=== PATIENT | female | born 1960 | race Caucasian/White ===

== ENCOUNTER 2019-02-26 09:11 | Inpatient (IN) | payer OTHER ==
[2019-02-26] MEDS ORDERED: ASPIRIN 81 MG CHEWABLE TABLET ONE (10:04)
[2019-02-26] MEDS ORDERED: HEPARIN 5000 UNIT/ML 1 ML VIAL ONE (10:05)
[2019-02-26] MEDS ORDERED: PANTOPRAZOLE 40 MG INJ ONE (10:05)
[2019-02-26] MEDS ORDERED: METOPROLOL TAR 25 MG TAB ONE (10:05)
[2019-02-26] MEDS ORDERED: HEPARIN/D5W 25,000 UNIT/500 ML BAG IV ONE (10:05)
--- NOTE | 2019-02-26 10:16 | RAD REPORT ---
EXAM DESCRIPTION: RAD - Chest Single View - 02/26/2019 9:50 am CLINICAL HISTORY: Bilateral shoulder pain, left-sided chest pain, shortness of breath COMPARISON: None TECHNIQUE: AP portable chest image was obtained 0948 hours . FINDINGS: Lung volumes are low. Patchy airspace opacification is present in the mid right lung field most likely right upper lobe pneumonia. Bilateral lower lung field atelectasis changes are present. Failure and volume overload are not suspected. Heart and vasculature are normal. No measurable pleural effusion and no pneumothorax. No acute bony abnormality seen. No acute aortic findings suspected. IMPRESSION: Right upper lobe pneumonia.
[2019-02-26] MEDS ORDERED: MORPHINE 2 MG/ML SYR ONE (10:18)
[2019-02-26] MEDS ORDERED: ONDANSETRON 4 MG/2 ML VIAL ONE (10:18)
[2019-02-26 10:26] LABS: Absolute Lymphocytes (CBC) 0.5 K/uL (0.7-4.9); Basophils % 0.1 % (0-1.3); Hematocrit 35.1 % (36.0-45.0); Lymphocytes % 6.3 % (15.3-44.8); Protime INR 1.04
[2019-02-26] MEDS ORDERED: LEVALBUTEROL 1.25 MG/3 ML NEB ONE (10:39)
[2019-02-26] MEDS ORDERED: IPRATROPIUM BROM 0.5MG/2.5ML ONE (10:39)
[2019-02-26] MEDS ORDERED: NA CHLORIDE 0.9% 3,000 ML ONE (10:40)
[2019-02-26] MEDS ORDERED: Levofloxacin 750mg IV 750 MG/150 ML BAG IV ONE (10:40)
[2019-02-26 10:58] LABS: ALT/SGPT 18 U/L (12-78); AST/SGOT 14 U/L (15-37); Albumin 3.3 g/dL (3.4-5.0); Alkaline Phosphatase 87 U/L (45-117); BUN Blood Urea Nitrogen 33 mg/dL (7-18); Bicarbonate 23 mmol/L (21-32); Bilirubin Direct 0.2 mg/dL (0-0.2); Bilirubin Total 0.5 mg/dL (0.2-1.0); Glucose Level 171 mg/dL (74-106); Lipase 108 U/L (73-393); Magnesium 1.7 mg/dL (1.8-2.4); NT PRO-BNP 239 pg/mL (<125); Potassium 3.9 mmol/L (3.5-5.1); Protein, Total 6.1 g/dL (6.4-8.2); Sodium Level 144 mmol/L (136-145); Troponin (Emerg Dept Use Only) < 0.02 ng/mL (0.0-0.045)
[2019-02-26] MEDS ORDERED: CEFTRIAXONE/SWI 2gm 2 GM/20 ML SYR IVP ONE (11:00)
--- NOTE | 2019-02-26 11:02 | ER ---
Nurse's Notes [facility] Name: Susan Bermudez Age: 58 yrs Sex: Female : 1960 Arrival Date: 02/26/2019 Time: 09:12 Bed 7 Private MD: Diagnosis: Pneumonia due to other specified bacteria;Weakness;Hypotension;Sepsis, unspecified organism;Other chest pain;Unspecified kidney failure;Hypomagnesemia Presentation: 02/26 09:20 Presenting complaint: Patient states: woke up this morning around 0700 with sherri sv shoulder pain, left sided chest tightness that radiates to the left arm, SOB, dizziness. Denies n/v. Transition of care: patient was not received from another setting of care. Onset of symptoms was February 26, 2019 at 07:00. Risk Assessment: Do you want to hurt yourself or someone else? Patient reports no desire to harm self or others. Care prior to arrival: None. 09:20 Method Of Arrival: Wheelchair sv 09:20 Acuity: LIAM 2 sv 09:32 Initial Sepsis Screen: Does the patient meet any 2 criteria? HR > 90 bpm. No. Patient's sv initial sepsis screen is negative. Does the patient have a suspected source of infection? No. Patient's initial sepsis screen is negative. 11:39 Initial Sepsis Screen: Does the patient meet any 2 criteria? Systolic BP < 90 mmHg. sv Mean Arterial Pressure (MAP) < 65. Yes Does the patient have a suspected source of infection? Yes: Productive cough/pneumonia If YES to both, name of provider notified: Luis Martin MD Triage Assessment: 09:20 General: Appears in no apparent distress. uncomfortable, well developed, Behavior is sv calm, cooperative, appropriate for age. Pain: Complains of pain in anterior aspect of left upper chest, left breast, anterior aspect of right shoulder, anterior aspect of left shoulder, left bicep, left antecubital area, dorsal aspect of left forearm, left wrist and left hand Pain currently is 7 out of 10 on a pain scale. Neuro: Level of Consciousness is awake, alert, obeys commands, Oriented to person, place, time, situation, Gait is steady, Speech is normal. Cardiovascular: Patient's skin is warm and dry. Respiratory: Reports shortness of breath on exertion Airway is patent Respiratory effort is even, unlabored, Respiratory pattern is regular, symmetrical. GI: Patient currently denies nausea, vomiting. Derm: Skin is intact, Skin is pink, warm \T\ dry. Historical: - Allergies: 09: Erythromycin; sv - Home Meds: :22 Percocet Oral [Active]; Lyrica Oral [Active]; Prilosec Oral [Active]; sv - PMHx: 09:22 Back pain; sv - PSHx: :22 right kidney removed; sv - Immunization history:: Flu vaccine is up to date. - Social history:: Smoking status: Patient/guardian denies using tobacco. - Ebola Screening: : No symptoms or risks identified at this time. - Family history:: not pertinent. Screenin:30 Abuse screen: Denies threats or abuse. Denies injuries from another. Nutritional sv screening: No deficits noted. Tuberculosis screening: No symptoms or risk factors identified. Fall Risk None identified. Assessment: 09:40 Reassessment: Patient appears in no apparent distress at this time. No changes from sv previously documented assessment. Patient and/or family updated on plan of care and expected duration. Pain level reassessed. Patient is alert, oriented x 3, equal unlabored respirations, skin warm/dry/pink. 10:30 Reassessment: Patient appears in no apparent distress at this time. Patient and/or sv family updated on plan of care and expected duration. Pain level reassessed. Patient is alert, oriented x 3, equal unlabored respirations, skin warm/dry/pink. 11:04 Reassessment: Patient appears in no apparent distress at this time. Patient and/or sv family updated on plan of care and expected duration. Pain level reassessed. General: Appears in no apparent distress. comfortable, Behavior is cooperative, drowsy. Neuro:. Respiratory: Respiratory effort is even, unlabored, Respiratory pattern is regular, symmetrical. 11:40 Reassessment: Code Sepsis called. sv 12:19 Reassessment: Repeat lactate sent and called Cartina in lab to inform her it was sent. sv 12:39 Reassessment: Dr Kraft at bedside. sv 13:28 Reassessment: Patient appears in no apparent distress at this time. No changes from sv previously documented assessment. Patient and/or family updated on plan of care and expected duration. Pain level reassessed. Patient is alert, oriented x 3, equal unlabored respirations, skin warm/dry/pink. 14:41 Reassessment: Patient appears in no apparent distress at this time. No changes from sv previously documented assessment. Patient and/or family updated on plan of care and expected duration. Pain level reassessed. Patient is alert, oriented x 3, equal unlabored respirations, skin warm/dry/pink. 18:00 Reassessment: Attempted to call report. sv Vital Signs: 09:27 Pulse 112 MON; Resp 18; Temp 98.0; Pulse Ox 99% on R/A; Pain 7/10; sg 09:33 BP 112 / 94; Pulse 105; Resp 20; Temp 98.2; Pulse Ox 96% ; Weight 90.72 kg; Height 5 sv ft. 2 in. (157.48 cm); 09:48 Pulse 83; Resp 16; Pulse Ox 96% ; sv 10:30 BP 71 / 46; Pulse 87; Resp 17; Pulse Ox 96% ; sv 11:03 BP 79 / 68; Pulse 90; Resp 16; Temp 98.0(O); Pulse Ox 100% on Nebulizer Mask; mh5 11:35 BP 80 / 55; Pulse 92; Resp 20; Pulse Ox 100% on 2 lpm NC; sv 11:46 BP 89 / 55; Pulse 90; Resp 21; Pulse Ox 100% on 2 lpm NC; sv 12:43 BP 90 / 64; Pulse 91; Resp 14; Temp 98.8(TE); Pulse Ox 100% on R/A; mh5 13:49 BP 87 / 62; Pulse 81; Resp 16; Pulse Ox 97% on 2 lpm NC; sv 14:00 BP 85 / 53; Pulse 86; Resp 16; Pulse Ox 99% on R/A; sv 15:29 BP 98 / 61; Pulse 87; Resp 17; Temp 98.2; Pulse Ox 99% on R/A; sg 15:50 BP 91 / 58; Pulse 82; Resp 17; Temp 98.2; Pulse Ox 100% on R/A; sg 09:33 Body Mass Index 36.58 (90.72 kg, 157.48 cm) sv 10:30 Dr Martin informed of vitals, medication orders received, see APR. sv 11:35 MAP-62 sv ED Course: 09:12 Patient arrived in ED. ss 09:21 Triage completed. sv 09:21 Luis Martin MD is Attending Physician. kathryn 09:22 Arm band placed on. sv 09:22 Patient has correct armband on for positive identification. Placed in gown. Bed in low sv position. Call light in reach. Adult w/ patient. culinary arts instructor on. Pulse ox on. NIBP on. Door closed. Head of bed elevated. 09:30 Mely Coughlin, RN is Primary Nurse. sv 09:33 Patient maintains SpO2 saturation greater than 95% on room air. sv 09:40 Awaiting ED provider evaluation. sv 09:48 XRAY Chest (1 view) Sent. sv 09:48 X-ray(s) taken. sv 09:49 XRAY Chest (1 view) In Process Unspecified. EDMS 09:54 ED physician to see patient. sv 10:15 Radiology exam delayed due to lab results not completed at this time. (BUN/Creatinine). bq 10:20 Basic Metabolic Panel Sent. mh5 10:20 CBC with Diff Sent. mh5 10:20 LFT's Sent. mh5 10:20 Magnesium Sent. mh5 10:20 NT PRO-BNP Sent. mh5 10:20 PT-INR Sent. mh5 10:20 Troponin (emerg Dept Use Only) Sent. mh5 10:21 Initial lab(s) drawn, by me, sent to lab. EKG done, by ED staff, reviewed by Luis Martin MD. Inserted saline lock: 20 gauge in right antecubital area, using aseptic technique. Blood collected. 10:25 Inserted saline lock: 20 gauge in right wrist, using aseptic technique. Flushed right sv with 5 ml normal saline. 10:30 First set of blood cultures drawn by me. Inserted saline lock: 20 gauge in left wrist, sv using aseptic technique. Blood collected. Flushed left with 5 ml normal saline. 10:45 Second set of blood cultures drawn by me. sv 10:59 Mehdi Kraft MD is Hospitalizing Provider. kathryn 11:[address] via stretcher. sv 11:23 CT completed. Patient tolerated procedure well. Patient moved back from CT. nj 11:23 CT Chest Abdomen Pelvis W/O Contrast: no iv no oral In Process Unspecified. EDMS 11:42 Awaiting bed assignment, Awaiting radiology results. sv 11:51 Lactate Sent. mh5 11:51 Repeat lab(s) drawn. 5 17:26 No provider procedures requiring assistance completed. Patient admitted, IV remains in sv place. intact. Administered Medications: Discontinued: Heparin (NV Drip) 12 units/kg/hr - (HEParin 81524 units, D5W 500 ml) IV at calculated rate Per protocol; Max initial rate 1000 units/hr 10:14 Drug: Aspirin Chewable Tablet 324 mg Route: PO; sv 11:02 Follow up: Response: No adverse reaction sv 10:14 Drug: Lopressor 25 mg Route: PO; sv 11:01 Follow up: Response: No adverse reaction sv 10:14 Drug: ProTONIX 40 mg Route: IVP; Site: right antecubital; sv 11:01 Follow up: Response: No adverse reaction sv 10:20 Drug: Zofran 4 mg Route: IVP; Site: right antecubital; sv 11:00 Follow up: Response: No adverse reaction sv 10:22 Drug: morphine 2 mg {Note: rass0.} Route: IVP; Site: right antecubital; sv 11:00 Follow up: Response: No adverse reaction; Pain is decreased; RASS: Light sedation (-2) sv 10:23 Drug: Heparin (NV Drip) 12 units/kg/hr - (HEParin 90719 units, D5W 500 ml) sv {Co-Signature: sg (Ranjith Nowak RN).} Route: IV; Rate: calculated rate; Site: right antecubital; 10:23 Drug: Heparin (NV-Bolus No thrombolytic) - HEParin 60 units/kg {Co-Signature: sg sv (Ranjith Nowak RN).} Route: IVP; Site: right antecubital; 11:01 Follow up: Response: No adverse reaction sv 10:55 Drug: Rocephin 2 grams Route: IV; Rate: per protocol; Site: left wrist; sv 10:59 Follow up: Response: No adverse reaction; IV Status: Completed infusion; IV Intake: 20mlsv 10:59 Drug: Xopenex 1.25 mg Route: Inhalation; sv 10:59 Drug: AtroVENT Aerosol 0.5 mg Route: Inhalation; sv 11:00 Drug: NS 0.9% 1000 ml Route: IV; Rate: 1 bolus; Site: left wrist; sv 12:20 Follow up: Response: No adverse reaction; IV Status: Completed infusion; IV Intake: sv 1000ml 11:00 Drug: LevaQUIN 750 mg Volume: 150 ml; Route: IVPB; Infused Over: 90 mins; Site: left sv wrist; 12:39 Follow up: Response: No adverse reaction; IV Status: Completed infusion; IV Intake: sv 150ml 11:00 Drug: NS 0.9% 1000 ml Route: IV; Rate: 1 bolus; Site: left wrist; sv 12:38 Follow up: Response: No adverse reaction; IV Status: Completed infusion; IV Intake: sv 1000ml 11:12 Drug: Magnesium Sulfate 1 grams Route: IVPB; Infused Over: 1 hrs; Site: right wrist; sv 12:20 Follow up: Response: No adverse reaction; IV Status: Completed infusion; IV Intake: sv 100ml 12:19 Drug: NS 0.9% 1000 ml Route: IV; Rate: 1 bolus; Site: left forearm; sv 13:30 Follow up: Response: No adverse reaction; IV Status: Completed infusion; IV Intake: sv 1000ml 13:28 Drug: NS 0.9% 2000 ml Route: IV; Rate: 1 bolus; Site: left wrist; sg 15:00 Follow up: Response: No adverse reaction; IV Status: Completed infusion; IV Intake: sv 2000ml 14:41 Drug: NS 0.9% 1000 ml Route: IV; Rate: 125 ml/hr; Site: left wrist; sv 18:49 Follow up: Response: No adverse reaction; IV Status: Infusion continued upon admission sv Intake: 10:59 IV: 20ml; Total: 20ml. sv 12:20 IV: 1000ml; Total: 1020ml. sv 12:20 IV: 100ml; Total: 1120ml. sv 12:38 IV: 1000ml; Total: 2120ml. sv 12:39 IV: 150ml; Total: 2270ml. sv 13:30 IV: 1000ml; Total: 3270ml. sv 15:00 IV: 2000ml; Total: 5270ml. sv Outcome: 11:01 Decision to Hospitalize by Provider. kathryn 17:26 Admitted to ER Hold. Please see [facility] for further documentation. sv 17:26 Condition: stable 17:26 Instructed on the need for admit. 18:49 Patient left the ED. sv Signatures: Dispatcher [facility] Mely Moon RN RN sv Gay, Steven, RN RN sg Luis Martin MD MD cha Quilty, Betty Mechelle Casper RN RN [place] [id number] Ranjith Nowak RN Corrections: (The following items were deleted from the chart) 09:33 09:20 Acuity: LIAM 3 sv sv 09:34 09:33 Resp 20bpm; Pulse Ox 96%; Temp 98.2F; 90.72 kg; Height 5 ft. 2 in.; BMI: 36.5; sv sv 09:40 09:33 Pulse 105bpm; Resp 20bpm; Pulse Ox 96%; Temp 98.2F; 90.72 kg; Height 5 ft. 2 in.; sv BMI: 36.5; sv 11:11 11:03 BP 79 / 68; Pulse 90bpm; Resp 16bpm; Pulse Ox 100% Nebulizer Mask; [facility]
--- NOTE | 2019-02-26 11:03 | EDPHYS ---
Physician Documentation [facility] Name: Susan Bermudez Age: 58 yrs Sex: Female : 1960 Arrival Date: 02/26/2019 Time: 09:12 Bed 7 Private MD: ED Physician Luis Martin HPI: 02/26 09:58 This 58 yrs old Female presents to ER via Wheelchair with complaints of Chest kathryn Pain. 09:58 The patient or guardian reports chest pain that is located primarily in the substernal kathryn area, anterior chest wall. Onset: last night. The pain radiates to the left arm. Associated signs and symptoms: The patient has no apparent associated signs or symptoms. The chest pain is described as a heaviness, squeezing. Modifying factors: The symptoms are alleviated by nothing. the symptoms are aggravated by nothing. The patient has not experienced similar symptoms in the past. Historical: - Allergies: 09:22 Erythromycin; sv - Home Meds: 09:22 Percocet Oral [Active]; Lyrica Oral [Active]; Prilosec Oral [Active]; sv - PMHx: 09:22 Back pain; sv - PSHx: 09:22 right kidney removed; sv - Immunization history:: Flu vaccine is up to date. - Social history:: Smoking status: Patient/guardian denies using tobacco. - Ebola Screening: : No symptoms or risks identified at this time. - Family history:: not pertinent. ROS: 09:58 Constitutional: Negative for fever, chills, and weight loss, Eyes: Negative for injury, kathryn pain, redness, and discharge, ENT: Negative for injury, pain, and discharge, Neck: Negative for injury, pain, and swelling, Respiratory: Negative for shortness of breath, cough, wheezing, and pleuritic chest pain, Abdomen/GI: Negative for abdominal pain, nausea, vomiting, diarrhea, and constipation, Back: Negative for injury and pain, : Negative for injury, bleeding, discharge, and swelling, MS/Extremity: Negative for injury and deformity, Neuro: Negative for headache, weakness, numbness, tingling, and seizure, Psych: Negative for depression, anxiety, suicide ideation, homicidal ideation, and hallucinations, Allergy/Immunology: Negative for hives, rash, and allergies, Endocrine: Negative for neck swelling, polydipsia, polyuria, polyphagia, and marked weight changes, Hematologic/Lymphatic: Negative for swollen nodes, abnormal bleeding, and unusual bruising. 09:58 Cardiovascular: Positive for chest pain, of the left arm and chest. Exam: 09:58 Constitutional: This is a well developed, well nourished patient who is awake, alert, kathryn and in no acute distress. Head/Face: Normocephalic, atraumatic. Eyes: Pupils equal round and reactive to light, extra-ocular motions intact. Lids and lashes normal. Conjunctiva and sclera are non-icteric and not injected. Cornea within normal limits. Periorbital areas with no swelling, redness, or edema. ENT: Nares patent. No nasal discharge, no septal abnormalities noted. Tympanic membranes are normal and external auditory canals are clear. Oropharynx with no redness, swelling, or masses, exudates, or evidence of obstruction, uvula midline. Mucous membranes moist. Neck: Trachea midline, no thyromegaly or masses palpated, and no cervical lymphadenopathy. Supple, full range of motion without nuchal rigidity, or vertebral point tenderness. No Meningismus. Chest/axilla: Normal chest wall appearance and motion. Nontender with no deformity. No lesions are appreciated. Cardiovascular: Regular rate and rhythm with a normal S1 and S2. No gallops, murmurs, or rubs. Normal PMI, no JVD. No pulse deficits. Respiratory: Lungs have equal breath sounds bilaterally, clear to auscultation and percussion. No rales, rhonchi or wheezes noted. No increased work of breathing, no retractions or nasal flaring. Abdomen/GI: Soft, non-tender, with normal bowel sounds. No distension or tympany. No guarding or rebound. No evidence of tenderness throughout. Back: No spinal tenderness. No costovertebral tenderness. Full range of motion. MS/ Extremity: Pulses equal, no cyanosis. Neurovascular intact. Full, normal range of motion. Neuro: Awake and alert, GCS 15, oriented to person, place, time, and situation. Cranial nerves II-XII grossly intact. Motor strength 5/5 in all extremities. Sensory grossly intact. Cerebellar exam normal. Normal gait. Psych: Awake, alert, with orientation to person, place and time. Behavior, mood, and affect are within normal limits. 09:58 Skin: Appearance: Color: pale, Temperature: normal temperature, Moisture: diaphoretic, petechiae, not noted, ecchymosis, not noted, flushing, not noted, diaphoresis is noted, swelling, is not appreciated. 10:01 Musculoskeletal/extremity: ROM: intact in all extremities, full active range of motion, kathryn full passive range of motion, Circulation is intact in all extremities. Sensation intact. Compartment Syndrome exam of affected extremity: is normal. DVT Exam: No signs of deep vein thrombosis. no pain, no swelling, no tenderness, negative Homans' sign noted on exam, no appreciated bluish discoloration, no erythema, no increased warmth. Vital Signs: 09:27 Pulse 112 MON; Resp 18; Temp 98.0; Pulse Ox 99% on R/A; Pain 7/10; sg 09:33 BP 112 / 94; Pulse 105; Resp 20; Temp 98.2; Pulse Ox 96% ; Weight 90.72 kg; Height 5 sv ft. 2 in. (157.48 cm); 09:48 Pulse 83; Resp 16; Pulse Ox 96% ; sv 10:30 BP 71 / 46; Pulse 87; Resp 17; Pulse Ox 96% ; sv 11:03 BP 79 / 68; Pulse 90; Resp 16; Temp 98.0(O); Pulse Ox 100% on Nebulizer Mask; mh5 11:35 BP 80 / 55; Pulse 92; Resp 20; Pulse Ox 100% on 2 lpm NC; sv 11:46 BP 89 / 55; Pulse 90; Resp 21; Pulse Ox 100% on 2 lpm NC; sv 12:43 BP 90 / 64; Pulse 91; Resp 14; Temp 98.8(TE); Pulse Ox 100% on R/A; mh5 13:49 BP 87 / 62; Pulse 81; Resp 16; Pulse Ox 97% on 2 lpm NC; sv 14:00 BP 85 / 53; Pulse 86; Resp 16; Pulse Ox 99% on R/A; sv 15:29 BP 98 / 61; Pulse 87; Resp 17; Temp 98.2; Pulse Ox 99% on R/A; sg 15:50 BP 91 / 58; Pulse 82; Resp 17; Temp 98.2; Pulse Ox 100% on R/A; sg 09:33 Body Mass Index 36.58 (90.72 kg, 157.48 cm) sv 10:30 Dr Martin informed of vitals, medication orders received, see MAR. sv 11:35 MAP-62 sv MDM: 09:21 Patient medically screened. [facility] 10:01 Data reviewed: vital signs, nurses notes, lab test result(s), EKG, radiologic studies, [facility] CT scan, plain films. 02/26 09:32 Order name: Basic Metabolic Panel; Complete Time: 11:03 02/26 09:32 Order name: CBC with Diff; Complete Time: 10:32 02/26 09:32 Order name: LFT's; Complete Time: 11:03 02/26 09:32 Order name: Magnesium; Complete Time: 11:03 02/26 09:32 Order name: NT PRO-BNP; Complete Time: 11:03 02/26 09:32 Order name: PT-INR; Complete Time: 10:32 02/26 09:32 Order name: Troponin (emerg Dept Use Only); Complete Time: 11:03 02/26 09:34 Order name: Lipase; Complete Time: 11:03 [facility] 02/26 10:26 Order name: Blood Culture Adult (2) [facility] 02/26 11:39 Order name: Lactate sv 02/26 12:25 Order name: CBC with Automated Diff [facility] 02/26 12:25 Order name: CBC with Automated Diff [facility] 02/26 12:25 Order name: Comprehensive Metabolic Panel [facility] 02/26 12:25 Order name: Comprehensive Metabolic Panel [facility] 02/26 09:32 Order name: XRAY Chest (1 view); Complete Time: 10:24 02/26 11:02 Order name: CT Chest Abdomen Pelvis W/O Contrast: no iv no oral [facility] 02/26 12:25 Order name: Troponin I [facility] 02/26 12:25 Order name: Troponin I [facility] 02/26 12:25 Order name: Troponin I [facility] 02/26 12:25 Order name: Troponin I [facility] 02/26 12:25 Order name: Vancomycin Level Trough [facility] 02/26 12:25 Order name: Vancomycin Level Trough [facility] 02/26 13:28 Order name: Urine Dipstick--Ancillary (enter results) eb 02/26 13:48 Order name: Urine Creatinine sg 02/26 13:48 Order name: Urine Sodium Random sg 02/26 14:12 Order name: Urine Dipstick-Ancillary [facility] 02/26 14:15 Order name: UR CREAT [facility] 02/26 14:17 Order name: UR SODIUM [facility] 02/26 09:32 Order name: EKG; Complete Time: 09:33 02/26 09:32 Order name: Cardiac monitoring; Complete Time: 09:39 02/26 09:32 Order name: EKG - Nurse/Tech; Complete Time: 09:39 02/26 09:32 Order name: IV Saline Lock; Complete Time: 09:48 02/26 09:32 Order name: Labs collected and sent; Complete Time: 09:48 02/26 09:32 Order name: O2 Per Protocol; Complete Time: 09:40 02/26 09:32 Order name: O2 Sat Monitoring; Complete Time: 09:40 02/26 09:53 Order name: EKG; Complete Time: 09:54 02/26 09:53 Order name: EKG - Nurse/Tech; Complete Time: 10:14 02/26 09:58 Order name: EKG - Nurse/Tech; Complete Time: 10:19 [facility] 02/26 09:58 Order name: EKG; Complete Time: 09:58 [facility] 02/26 10:07 Order name: Labs - recollect needed: all labs to be recollected; Complete Time: 10:19 eb 02/26 12:25 Order name: CONS Pharmacy Consult [facility] 02/26 12:25 Order name: Clear Liquid [facility] 02/26 15:28 Order name: Diet Clear Liquid; Complete Time: 15:29 02/26 10:45 Order name: IV Saline Lock - Large Bore; Complete Time: 10:59 [facility] 02/26 12:09 Order name: Labs - recollect needed: recollect lac; Complete Time: 12:19 eb Administered Medications: Discontinued: Heparin (MN Drip) 12 units/kg/hr - (HEParin 14294 units, D5W 500 ml) IV at calculated rate Per protocol; Max initial rate 1000 units/hr 10:14 Drug: Aspirin Chewable Tablet 324 mg Route: PO; sv 11:02 Follow up: Response: No adverse reaction sv 10:14 Drug: Lopressor 25 mg Route: PO; sv 11:01 Follow up: Response: No adverse reaction sv 10:14 Drug: ProTONIX 40 mg Route: IVP; Site: right antecubital; sv 11:01 Follow up: Response: No adverse reaction sv 10:20 Drug: Zofran 4 mg Route: IVP; Site: right antecubital; sv 11:00 Follow up: Response: No adverse reaction sv 10:22 Drug: morphine 2 mg {Note: rass0.} Route: IVP; Site: right antecubital; sv 11:00 Follow up: Response: No adverse reaction; Pain is decreased; RASS: Light sedation (-2) sv 10:23 Drug: Heparin (MN Drip) 12 units/kg/hr - (HEParin 45449 units, D5W 500 ml) sv {Co-Signature: sg (Ranjith Nowak RN).} Route: IV; Rate: calculated rate; Site: right antecubital; 10:23 Drug: Heparin (MN-Bolus No thrombolytic) - HEParin 60 units/kg {Co-Signature: sg sv (Ranjith Nowak RN).} Route: IVP; Site: right antecubital; 11:01 Follow up: Response: No adverse reaction sv 10:55 Drug: Rocephin 2 grams Route: IV; Rate: per protocol; Site: left wrist; sv 10:59 Follow up: Response: No adverse reaction; IV Status: Completed infusion; IV Intake: 20mlsv 10:59 Drug: Xopenex 1.25 mg Route: Inhalation; sv 10:59 Drug: AtroVENT Aerosol 0.5 mg Route: Inhalation; sv 11:00 Drug: NS 0.9% 1000 ml Route: IV; Rate: 1 bolus; Site: left wrist; sv 12:20 Follow up: Response: No adverse reaction; IV Status: Completed infusion; IV Intake: sv 1000ml 11:00 Drug: LevaQUIN 750 mg Volume: 150 ml; Route: IVPB; Infused Over: 90 mins; Site: left sv wrist; 12:39 Follow up: Response: No adverse reaction; IV Status: Completed infusion; IV Intake: sv 150ml 11:00 Drug: NS 0.9% 1000 ml Route: IV; Rate: 1 bolus; Site: left wrist; sv 12:38 Follow up: Response: No adverse reaction; IV Status: Completed infusion; IV Intake: sv 1000ml 11:12 Drug: Magnesium Sulfate 1 grams Route: IVPB; Infused Over: 1 hrs; Site: right wrist; sv 12:20 Follow up: Response: No adverse reaction; IV Status: Completed infusion; IV Intake: sv 100ml 12:19 Drug: NS 0.9% 1000 ml Route: IV; Rate: 1 bolus; Site: left forearm; sv 13:30 Follow up: Response: No adverse reaction; IV Status: Completed infusion; IV Intake: sv 1000ml 13:28 Drug: NS 0.9% 2000 ml Route: IV; Rate: 1 bolus; Site: left wrist; sg 15:00 Follow up: Response: No adverse reaction; IV Status: Completed infusion; IV Intake: sv 2000ml 14:41 Drug: NS 0.9% 1000 ml Route: IV; Rate: 125 ml/hr; Site: left wrist; sv 18:49 Follow up: Response: No adverse reaction; IV Status: Infusion continued upon admission sv Disposition: 02/26/19 11:01 Hospitalization ordered by Mehid Kraft for Inpatient Admission. Preliminary diagnosis are Pneumonia due to other specified bacteria, Weakness, Hypotension, Sepsis, unspecified organism, Other chest pain, Unspecified kidney failure, Hypomagnesemia. - Bed requested for Telemetry/MedSurg (Inpatient). - Status is Inpatient Admission. sv - Condition is Fair. - Problem is new. - Symptoms have improved. UTI on Admission? No Signatures: Dispatcher [employer] Mely Moon RN RN sv Gay, Steven, RN RN sg Anderson, Corey, MD MD cha Smirch, Shelby, RN RN ss Botello, Elizabeth eb Steven Gay RN Corrections: (The following items were deleted from the chart) 11:04 11:01 Hospitalization Ordered by Mehdi Kraft MD for Inpatient Admission. Preliminary [facility] diagnosis is Pneumonia due to other specified bacteria; Weakness; Hypotension; Sepsis, unspecified organism; Other chest pain; Unspecified kidney failure. Bed requested for Telemetry/MedSurg (Inpatient). Status is Inpatient Admission. Condition is Fair. Problem is new. Symptoms have improved. UTI on Admission? No. kathryn 11:09 09:58 Angio Aorta For Dissection+CT.RAD.BRZ ordered. EDVT EDMS 11:10 10:58 Thorax Wo Con+CT.RAD.BRZ ordered. EDVT EDMS 11:15 11:04 02/26/2019 11:01 Hospitalization Ordered by Mehdi Kraft MD for Inpatient eb Admission. Preliminary diagnosis is Pneumonia due to other specified bacteria; Weakness; Hypotension; Sepsis, unspecified organism; Other chest pain; Unspecified kidney failure; Hypomagnesemia. Bed requested for Telemetry/MedSurg (Inpatient). Status is Inpatient Admission. Condition is Fair. Problem is new. Symptoms have improved. UTI on Admission? No. kathryn 14:13 11:15 02/26/2019 11:01 Hospitalization Ordered by Mehdi Kraft MD for Inpatient eb Admission. Preliminary diagnosis is Pneumonia due to other specified bacteria; Weakness; Hypotension; Sepsis, unspecified organism; Other chest pain; Unspecified kidney failure; Hypomagnesemia. Bed requested for Telemetry/MedSurg (Inpatient). Status is Inpatient Admission. Condition is Fair. Problem is new. Symptoms have improved. UTI on Admission? No. eb 17:52 14:13 02/26/2019 11:01 Hospitalization Ordered by Mehdi Kraft MD for Inpatient eb Admission. Preliminary diagnosis is Pneumonia due to other specified bacteria; Weakness; Hypotension; Sepsis, unspecified organism; Other chest pain; Unspecified kidney failure; Hypomagnesemia. Bed requested for [facility] ER HOLD. Status is Inpatient Admission. Condition is Fair. Problem is new. Symptoms have improved. UTI on Admission? No. eb 18:49 17:52 02/26/2019 11:01 Hospitalization Ordered by Mehdi Kraft MD for Inpatient sv Admission. Preliminary diagnosis is Pneumonia due to other specified bacteria; Weakness; Hypotension; Sepsis, unspecified organism; Other chest pain; Unspecified kidney failure; Hypomagnesemia. Bed requested for Telemetry/MedSurg (Inpatient). Status is Inpatient Admission. Condition is Fair. Problem is new. Symptoms have improved. UTI on Admission? No. eb
[2019-02-26] MEDS ORDERED: MAGNESIUM SULFATE 1 gm IVPB 1 GM/100 ML BAG IV ONE (11:11)
--- NOTE | 2019-02-26 11:38 | RAD REPORT ---
EXAM DESCRIPTION: CT - Chest Abd Pelvis Wo Con - 02/26/2019 11:23 am CLINICAL HISTORY: Cough;Abdominal distention, bilateral shoulder and upper chest pain, chest tightne ss radiating to the left arm, shortness of breath COMPARISON: None. TECHNIQUE: During dynamic enhancement using 100 milliliters nonionic IV contrast, axial 5 millimeter thick images of the chest, abdomen and pelvis were obtained. Biphasic technique was utilized through the abdomen. Oral contrast was administered. All CT scans are performed using dose optimization technique as appropriate and may include automated exposure control or mA/KV adjustment according to patient size. FINDINGS: Moderate-sized area airspace opacification is present in the posterior inferior right uppe r lobe near the minor fissure. Air bronchograms are present. No cavitation. Patchy interstitial and a lveolar opacities are present in the posterior gutter on the right. Right middle lobe and left lung f ield are spared. No pneumothorax or pleural effusion. No chest wall mass or abnormal axillary lympha denopathy seen. Mediastinal and hilar regions show no mass or lymphadenopathy. No significant cardi ac finding. The liver, spleen and pancreas show no significant findings. Gallbladder and biliary tree are normal . Left kidney is absent. No hydronephrosis of the right kidney. No mass identified. Isodense masses and pyelonephritis are not excluded on a noncontrast examination. No adrenal abnormalities. Urinary tonya dder is contracted. Uterus is normal size for age. There is substantial limitation of mid and pelvic floor assessment due to bilateral hip prosthesis spray artifact. No dilated bowel loops or focal ball bowel wall thickening. No free air, free fluid or inflammatory stranding. No mass or bulky lymphadenopathy. A 2 centimeter fat only umbilical hernia is present. An adjacent 3 cm supraumbilical hernia seen on the right with a 2 centimeter neck. An additional 5 cent imeter diameter fat only hernias present to the right of midline above the umbilicus. This has a 2 ce ntimeter neck. Postsurgical changes are present with fusion hardware in place L3-S1. Advanced degenerative changes a re present involving T11- L2. Advanced degenerative disc disease is present. There is a retrolisthesi s of L2 on L3. Acute component doubtful. T10 hemangiomas present. IMPRESSION: Moderate-sized right upper lobe pneumonia with smaller right lower lobe pneumonia. No ca vitation or complicating finding. No other significant chest finding. No acute abdominal or pelvic finding. Left kidney is absent. Umbilical and supraumbilical fat only ventral hernias seen. Postsurgical fusion changes at L3-S1 with extensive advanced for age degenerative disc and bone saul es T11-L2.
[2019-02-26] MEDS ORDERED: MORPHINE 4 MG/ML SYR IV PRN (12:17)
[2019-02-26] MEDS ORDERED: ONDANSETRON 4 MG/2 ML VIAL IV PRN (12:17)
[2019-02-26] MEDS ORDERED: ALBUTEROL 2.5 MG/3 ML NEB SOL NEB PRN ×2 (12:17→19:00)
[2019-02-26] MEDS ORDERED: GUAIFENESIN/DM 5 ML UCUP PO PRN (12:19)
[2019-02-26] MEDS ORDERED: ACETAMINOPHEN 325 MG TABLET PO PRN (12:19)
[2019-02-26] MEDS ORDERED: HYDRALAZINE HCL 20 MG/ML VIAL IV PRN (12:19)
[2019-02-26] MEDS ORDERED: guaiFENesin 100 MG/5 ML UCUP PO PRN (12:19)
[2019-02-26] MEDS ORDERED: Levofloxacin500mg IV 500 MG/100 ML BAG IV SCH ×2 (13:00→18:00)
[2019-02-26] MEDS: NA CHLORIDE 0.9% 1,000 ML IV SCH ×2 (13:00→23:00)
[2019-02-26] MEDS ORDERED: VANCOMYCIN 1 GM in NA CHLORIDE 0.9% 500 ML IVPB SCH (13:00)
[2019-02-26] MEDS ORDERED: NOREPINEPHRINE 4 MG in D5W 250 ML IV PRN (13:01)
[2019-02-26 14:11] LABS: Urine Blood TRACE (NEG); Urine Glucose NEGATIVE (NEG); Urine Protein NEGATIVE (NEG)
[2019-02-26] MEDS: IPRATROPIUM BROM 0.5MG/2.5ML NEB SCH ×2 (14:15→20:00)
[2019-02-26] MEDS: ALBUTEROL 2.5 MG/3 ML NEB SOL NEB SCH ×2 (16:00→20:00)
[2019-02-26] MEDS: PIPER/TAZO/NS 2.25gm 2.25 GM/50 ML BAG IVPB SCH (17:00)
[2019-02-26 17:06] VITALS: BMI 36.6
[2019-02-26] MEDS ORDERED: VANCOMYCIN 1.5 GM in NA CHLORIDE 0.9% 500 ML IVPB SCH (18:00)
--- NOTE | 2019-02-27 01:10 | HP ---
Date of Admission: 02/26/2019 Presenting Complaint: Weakness and chest pain. History Of Present Illness: Susan Bermudez is a 58-year-old female with past medical h istory of GERD, on Protonix b.i.d.; recently travel to this area from [facility]; history of right kidney nephrectomy for reflux; nephropathy 15 years ago, who presented to the hospital because of ri ght-sided radiating to substernal chest pain associated with weakness since yesterday. Patient is al so complaining of shortness of breath, initially on exertion, but later at rest. She described her c hest pain as pleuritic. Patient initially denies any cough, but sister at bedside states the patient has been having dry hacking cough since the last 3 days. Patient denies any sputum production. She denies any recent contact. She denies any recent travel since the last 1 month. She states she has history of recurrent pneumonia in the past. Last episode was about 2 years ago. She denies any reg ular antibiotics use. In the ER, she was noted with marked hypoxia with requiring 2 L nasal cannula as well as hypotension with systolic down to the 70s/40s. She has received 3 L of IV fluid bolus and her blood pressure is still ranging from 80-90 systolic. She states chest pain somewhat feels bridgett r. CT of the chest shows evidence of right middle and upper lobe pneumonia. Past Medical History: Significant for, 1.GERD. 2.Reflux nephropathy, status post right nephrectomy. 3.History of chronic back pain. Past Surgical History: Right nephrectomy. Family History: Significant for diabetes in both parents. Home Medications: Percocet p.r.n., Lyrica as needed, as well as Prilosec 40 b.i.d. Allergies: ERYTHROMYCIN. Social History: Patient denies any history of tobacco, alcohol, or illicit drug use. She normally l rich in [place] on vacation in the area since the last 2 months. Review of Systems: All systems reviewed x14 were negative except as mentioned above. Physical Examination: Current Vitals Sign: Blood pressure of 86/53, pulse is down to 83 from initial admission of 03/16, O 2 saturation is 96% on 2 L nasal cannula. Temperature is afebrile at 98.2. General: Obese, elderly looking female, on nasal cannula O2. Head: Atraumatic, normocephalic. Pupils equal, reactive to light. Slightly moist oral mucosa. Neck: No JVD. No carotid bruit. Respiratory: Good air entry except for mild increase egophony over the right base. No wheezing. No rhonchi. Cardiovascular: S1, S2. Non-tachycardic. GI: Abdomen full, soft, nontender. Bowel sounds positive. No epigastric tenderness. No CVA tender ness. No suprapubic fullness. Extremities: No pedal edema. No calf tenderness. Neurologic: Patient is alert, conversant. No neurological focal motor deficit. Laboratory Data: EKG on initial presentation showed sinus tachy at 113 beats per minute. No ST-segm ent changes. Repeat EKG, now heart rate down to 99 beats per minute. Relatively unchanged. Chest x-ray shows right upper lobe pneumonia. CT of abdomen and pelvis as well as chest without cont rast consistent with a moderate-sized right upper lobe pneumonia with small right lower lobe pneumoni a. No crepitation , only ventral hernia seen, postsurgical fusion changes at L3-S1 with de generative changes also noted. Rest of labs: WBC 8.8, neutrophils 84%, no bands. Platelet 208, hemoglobin 11.8. INR 1.04. Potass ium 3.9, creatinine 1.79, glucose 171. ProBNP of 239, lipase 108. AST and ALT normal. Impression: 1.Right multilobar pneumonia. 2.Septic shock with hypotension. 3.Hypotension. 4.Gastroesophageal reflux disease. 5.Acute renal failure. 6.History of single left kidney. Plan: 1.Pneumonia with sepsis. We will admit patient to the ICU since the persistent borderline low blood pressure. We will continue IV fluid boluses. We gave another 2 L bolus now. 2.History of persistent hypotension. We will start patient on Levophed drip. Follow blood culture. We brought in antibiotics to include vancomycin, Zosyn, as well as Levaquin for coverage at this ti me. We will do Tylenol p.r.n. as needed. We will obtain sputum culture if feasible for Gram stain. We will continue to wean O2 as needed. 3.Hypotension. We do IV fluids and Levophed as needed. 4.Acute renal failure, likely due to ATN from hypotension, possibility also due to ATN from sepsis. Unclear if patient has baseline CKD despite having single kidney as patient repeatedly state her pre vious lab work usually normal. We will obtain random urine sodium and creatinine to calculate fracti onal excretion of sodium. We will obtain renal sonogram to further evaluate single left kidney. We will follow daily BMP. 5.Gastroesophageal reflux disease. Continue PPI. 6.Advanced directive discussed with patient. Patient wished to be full code. 7.DVT prophylaxis with subcutaneous Lovenox. Low risk of PE at this time. Given evidence of multil obar pneumonia, we discontinue current heparin drip. Total time spent in review of record, discussion with patient, and evaluation greater than 60 minutes . EO/MODL Voice ID: [id number]
[2019-02-27] MEDS: ALBUTEROL 2.5 MG/3 ML NEB SOL NEB SCH ×4 (01:20→12:50)
[2019-02-27] MEDS: IPRATROPIUM BROM 0.5MG/2.5ML NEB SCH ×3 (01:20→14:00)
[2019-02-27] MEDS: PIPER/TAZO/NS 2.25gm 2.25 GM/50 ML BAG IVPB SCH ×3 (01:29→17:38)
[2019-02-27 06:08] LABS: Absolute Lymphocytes (CBC) 2.7 K/uL (0.7-4.9); Basophils % 0.2 % (0-1.3); Lymphocytes % 16.9 % (15.3-44.8); MPV 9.6 fL (7.6-11.3); RBC Red Blood Cell Count 3.04 M/uL (3.86-4.86)
[2019-02-27 07:09] LABS: ALT/SGPT 13 U/L (12-78); AST/SGOT 9 U/L (15-37); Albumin 2.5 g/dL (3.4-5.0); Alkaline Phosphatase 64 U/L (45-117); BUN Blood Urea Nitrogen 24 mg/dL (7-18); Bicarbonate 22 mmol/L (21-32); Bilirubin Total 0.3 mg/dL (0.2-1.0); Glucose Level 85 mg/dL (74-106); Potassium 4.1 mmol/L (3.5-5.1); Sodium Level 146 mmol/L (136-145); Troponin I < 0.02 ng/mL (0.0-0.045)
[2019-02-27] MEDS: NA CHLORIDE 0.9% 1,000 ML IV SCH ×2 (08:36→19:00)
[2019-02-27] MEDS ORDERED: VANCOMYCIN 1 GM in NA CHLORIDE 0.9% 500 ML IVPB SCH (09:00)
[2019-02-27] MEDS ORDERED: VANCOMYCIN 1.5 GM in NA CHLORIDE 0.9% 500 ML IVPB SCH (09:00)
[2019-02-27] MEDS ORDERED: ENOXAPARIN 30 MG/0.3 ML SQ SCH (09:00)
--- NOTE | 2019-02-27 11:25 | P.PN ---
Subjective Date of Service: 02/27/19 Chief Complaint: feel better Subjective: No new changes, Improving, Doing well Physical Examination - Vital Signs Temperature: 97.5 F Blood Pressure: 93/50 Pulse: 77 Respirations: 20 Pulse Ox (%): 100 - Physical Exam General: Alert, Oriented x3 HEENT: Atraumatic, Normocephalic Neck: Supple, JVD not distended Respiratory: Normal air movement, Diminished (right base ) Cardiovascular: Normal pulses, Regular rate/rhythm, Normal S1 S2 Gastrointestinal: Normal bowel sounds, Soft and benign Musculoskeletal: No clubbing, No swelling Integumentary: No rashes, No breakdown Neurological: Normal gait, Normal speech, Normal strength at 5/5 x4 extr - Studies Laboratory Last Values WBC 15.8 K/uL (4.3-10.9) H D 02/27/19 05:26 RBC 3.04 M/uL (3.86-4.86) L 02/27/19 05:26 Hgb 9.7 g/dL (12.0-15.0) L 02/27/19 05:26 Hct 29.0 % (36.0-45.0) L D 02/27/19 05:26 MCV 95.4 fL (80-100) 02/27/19 05:26 MCH 31.9 pg (27.0-35.0) 02/27/19 05:26 MCHC 33.5 g/dL (32.0-36.0) 02/27/19 05:26 RDW 13.8 % (12.1-15.2) 02/27/19 05:26 Plt Count 164 K/uL (152-406) D 02/27/19 05:26 MPV 9.6 fL (7.6-11.3) 02/27/19 05:26 Neutrophils % 75.6 % (41.7-73.7) H 02/27/19 05:26 Lymphocytes % 16.9 % (15.3-44.8) 02/27/19 05:26 Monocytes % 6.9 % (3.3-12.3) 02/27/19 05:26 Eosinophils % 0.4 % (0-4.4) 02/27/19 05:26 Basophils % 0.2 % (0-1.3) 02/27/19 05:26 Absolute Neutrophils 11.9 K/uL (1.8-8.0) H 02/27/19 05:26 Absolute Lymphocytes 2.7 K/uL (0.7-4.9) 02/27/19 05:26 Absolute Monocytes 1.1 K/uL (0.1-1.3) 02/27/19 05:26 Absolute Eosinophils 0.1 K/uL (0-0.5) 02/27/19 05:26 Absolute Basophils 0.0 K/uL (0-0.5) 02/27/19 05:26 PT 12.2 SECONDS (9.5-12.5) 02/26/19 10:15 INR 1.04 02/26/19 10:15 Sodium 146 mmol/L (136-145) H 02/27/19 05:26 Potassium 4.1 mmol/L (3.5-5.1) 02/27/19 05:26 Chloride 119 mmol/L (98-107) H 02/27/19 05:26 Carbon Dioxide 22 mmol/L (21-32) 02/27/19 05:26 BUN 24 mg/dL (7-18) H 02/27/19 05:26 Creatinine 1.18 mg/dL (0.55-1.3) 02/27/19 05:26 Estimated GFR 47 mL/min (=/>90) L 02/27/19 05:26 Glucose 85 mg/dL (74-106) 02/27/19 05:26 Lactic Acid 1.9 mmol/L (0.4-2.0) 02/26/19 12:15 Calcium 8.0 mg/dL (8.5-10.1) L 02/27/19 05:26 Magnesium 1.7 mg/dL (1.8-2.4) L 02/26/19 10:15 Total Bilirubin 0.3 mg/dL (0.2-1.0) 02/27/19 05:26 Direct Bilirubin 0.2 mg/dL (0-0.2) 02/26/19 10:15 AST 9 U/L (15-37) L 02/27/19 05:26 ALT 13 U/L (12-78) 02/27/19 05:26 Alkaline Phosphatase 64 U/L (45-117) 02/27/19 05:26 Rapid Troponin I < 0.02 ng/mL (0.0-0.045) 02/26/19 10:15 Troponin I < 0.02 ng/mL (0.0-0.045) 02/27/19 05:26 NT-Pro-B Natriuret Pep 239 pg/mL (<125) H 02/26/19 10:15 Serum Total Protein 5.0 g/dL (6.4-8.2) L 02/27/19 05:26 Albumin 2.5 g/dL (3.4-5.0) L 02/27/19 05:26 Globulin 2.5 g/dL (2.3-3.5) 02/27/19 05:26 Albumin/Globulin Ratio 1.0 (1.1-1.8) L 02/27/19 05:26 Lipase 108 U/L (73-393) 02/26/19 10:15 Urine pH 5.0 (5.0-7.0) 02/26/19 13:28 Ur Specific [place] 1.020 (1.005-1.030) 02/26/19 13:28 Urine Ketones Negative (NEG) 02/26/19 13:28 Urine Blood Trace (NEG) H 02/26/19 13:28 Urine Nitrite Negative (NEG) 02/26/19 13:28 Ur Leukocyte Esterase Negative (NEG) 02/26/19 13:28 Ur Random Sodium 115 mmol/L (27-287) 02/26/19 21:58 Urine Creatinine 138.0 mg/dL (20-320) 02/26/19 13:50 Urine Glucose Negative (NEG) 02/26/19 13:28 Urine Total Protein Negative (NEG) 02/26/19 13:28 Vancomycin Trough 14.0 ug/mL (5.0-20.0) 02/27/19 05:26 Assessment & Plan - Problems (Diagnosis) (1) ARF (acute renal failure) with tubular necrosis Current Visit: Yes Status: Acute (2) Hyperglycemia Current Visit: Yes Status: Acute (3) Right middle lobe pneumonia Current Visit: Yes Status: Acute (4) Sepsis associated hypotension Current Visit: Yes Status: Acute (5) Single kidney Current Visit: Yes Status: Acute Physician Review: Patient Assessed, Agree with Above Assessment and Plan Physician Review Additional Text: # Right middle and lower lobe pneumonia -improving -resolcing sepsis -c/w triople abx regime # ARF on baseline CKD -from single lkidney and pre-renal - improving -c/w IVF # HTN-continue to hold meds for now # Hyperglycemia - start po intake , follow glucose trend
--- NOTE | 2019-02-27 11:45 | EKG ---
Test Date: 2019-02-26 Test Time: 09:23:41 Polysomnography Technician: SWG MEASUREMENT RESULTS: Intervals: Rate: 113 LA: 118 QRSD: 90 QT: 324 QTc: 444 [place]: P: 52 LA: 118 QRS: -23 T: 38 INTERPRETIVE STATEMENTS: Sinus tachycardia Otherwise normal ECG No previous ECG available for comparison Electronically Signed On 02-27-19 11:42:15 PAYROLL ACCOUNTANT by Khai Walton
[2019-02-27] MEDS ORDERED: Magnesium Sulfate 2gm IVPB 2 G/50 ML BAG IV ONE (12:19)
[2019-02-27] MEDS: FAMOTIDINE 20 MG TAB PO SCH (12:37)
[2019-02-27] MEDS ORDERED: ALBUTEROL 2.5 MG/3 ML NEB SOL NEB PRN (14:02)
[2019-02-27] MEDS ORDERED: IPRATROPIUM BROM 0.5MG/2.5ML NEB PRN (14:02)
[2019-02-27] MEDS ORDERED: BENZONATATE 100 MG CAP PO PRN (21:42)
[2019-02-27] MEDS ORDERED: FLUTICASONE 50MCG NASAL SPRAY NAS PRN (21:42)
[2019-02-27] MEDS: NACHLORIDE 0.45% 1,000 ML IV SCH ×2 (22:00)
[2019-02-28] MEDS: PIPER/TAZO/NS 2.25gm 2.25 GM/50 ML BAG IVPB SCH ×3 (00:31→17:16)
--- NOTE | 2019-02-28 03:13 | P.PN ---
Subjective Date of Service: 02/28/19 Chief Complaint: feel better Subjective: Other (nursing reports that patient is now in A fib. No hx of this in past. Clinically stable.) Physical Examination - Vital Signs Temperature: 98.2 F Blood Pressure: 125/66 Pulse: 86 Respirations: 17 Pulse Ox (%): 92 Assessment & Plan Discharge Plan: Home Plan to discharge in: 48 Hours Physician Review Additional Text: New onset Atrial fib: Will start Metoprolol IV PRN. Will increase Lovenox to 1 mg/kg sc BID. Will order ECHO and consult Cardiology in the am. Will also DC Levaquin. Right middle and lower lobe pneumonia -improving -resolving sepsis -DC Levaquin and Vanco. Continue with Zosyn. ARF on baseline CKD -from single lkidney and pre-renal - improving -IV fluids adjusted. Will monitor renal function. HTN-DC Hydralazine since she will be on Metoprolol. Hyperglycemia - monitor closely. Time Spent Managing Pts Care (In Minutes): 25
[2019-02-28] MEDS: METOPROLOL TARTRATE 5 MG/5 ML INJ IV PRN ×2 (03:15→11:19)
[2019-02-28] MEDS: ENOXAPARIN 100 MG/ML SYR SQ SCH ×2 (05:18→16:18)
[2019-02-28 06:01] LABS: Absolute Lymphocytes (CBC) 2.9 K/uL (0.7-4.9); Basophils % 0.3 % (0-1.3); Hematocrit 29.9 % (36.0-45.0); Lymphocytes % 21.2 % (15.3-44.8); RBC Red Blood Cell Count 3.13 M/uL (3.86-4.86)
[2019-02-28 06:36] LABS: Ferritin 127.4 ng/mL (8-388); Thyroid Stimulating Hormone 3.04 uIU/mL (0.360-3.740)
[2019-02-28 06:38] LABS: ALT/SGPT 14 U/L (12-78); AST/SGOT 11 U/L (15-37); Albumin 2.5 g/dL (3.4-5.0); Alkaline Phosphatase 75 U/L (45-117); BUN Blood Urea Nitrogen 17 mg/dL (7-18); Bicarbonate 20 mmol/L (21-32); Bilirubin Total 0.3 mg/dL (0.2-1.0); Glucose Level 85 mg/dL (74-106); Protein, Total 5.3 g/dL (6.4-8.2); Sodium Level 149 mmol/L (136-145); Troponin I < 0.02 ng/mL (0.0-0.045)
[2019-02-28] MEDS ORDERED: D5W 1,000 ML IV SCH (08:00)
[2019-02-28] MEDS: FAMOTIDINE 20 MG TAB PO SCH (08:46)
[2019-02-28] MEDS: GUAIFENESIN 600 MG SA TAB PO SCH ×2 (08:46→21:10)
[2019-02-28] MEDS: PANTOPRAZOLE 40MG TABLET PO SCH ×2 (08:46→16:17)
--- NOTE | 2019-02-28 08:50 | RAD REPORT ---
EXAM DESCRIPTION: RAD - Chest Pa And Lat (2 Views) - 02/28/2019 8:24 am CLINICAL HISTORY: Follow up pneumonia, pneumonia, shortness of breath COMPARISON: February 26 CT and portable chest TECHNIQUE: PA and lateral views of the chest were obtained. FINDINGS: The lungs are underinflated. Right upper lobe pneumonia changes are still present. Little interval change has occurred. Small or right base pneumonia changes also appear stable. No developing failure or volume overload seen. Heart size is normal and central vasculature is within normal wetzel its. No pleural effusion or pneumothorax seen. Prominent degenerative changes are present. Neurosti mulator wires are in place. There is accentuated kyphosis at the thoracolumbar junction. No aortic ab normality. IMPRESSION: Right upper lobe and right lung base pneumonia findings not substantially different from comparison.
--- NOTE | 2019-02-28 09:48 | P.PN ---
Subjective Date of Service: 02/28/19 Primary Care Provider: unknown Chief Complaint: feel better Subjective: Other (Patient went into AFib last night. Patient stable this time. Shortness of breath has improved.) Physical Examination - Vital Signs Temperature: 97.4 F Blood Pressure: 128/83 Pulse: 137 Respirations: 20 Pulse Ox (%): 98 - Physical Exam General: Alert, In no apparent distress, Oriented x3, Cooperative HEENT: Atraumatic Neck: Supple Respiratory: Crackles/rales (To the right base) Cardiovascular: Irregular heart rate/rhythm (AFib with rate around 120) Gastrointestinal: Normal bowel sounds, No masses, No rebound, No guarding Musculoskeletal: No erythema, No tenderness, No warmth Integumentary: No significant lesion, No tenderness/swelling, No erythema, No warmth, No cyanosis Neurological: Normal speech, Normal strength at 5/5 x4 extr, Normal tone, Normal affect - Studies Medications List Reviewed: Yes Assessment & Plan Discharge Plan: Home Plan to discharge in: 24 Hours Physician Review Additional Text: Impression: New onset atrial fibrillation Right upper and lower lobe pneumonia Acute on chronic renal failure stage 3 with history of solitary kidney Hypertension Hypoglycemia Plan: New onset atrial fibrillation: Patient started on IV metoprolol last night. Cardiology consulted. Await further recommendation. Patient also started on Lovenox at 1 milligram/kilogram subcu twice daily. Patient will likely require chronic anti coagulation therapy at discharge. Medications including antibiotics had been adjusted. Patient no longer on Levaquin. Will order echocardiogram. Wean off oxygen. Will monitor closely. Anticipate discharge in the next 24-48 hr with clinical improvement. Right upper and lower lobe pneumonia: Continue wean off oxygen. Antibiotics adjusted. Patient now on Zosyn. Recheck chest x-ray. Will monitor closely. Acute on chronic renal failure stage 3 with history of solitary kidney: IV fluids adjusted. Patient with history of solitary kidney. Will consult nephrology for further recommendation. Hypertension: Continue medication. Will monitor closely. Hypoglycemia: Encourage oral intake. Time Spent Managing Pts Care (In Minutes): 55
--- NOTE | 2019-02-28 10:21 | EKG ---
Test Date: 2019-02-26 Test Time: 10:05:36 Imaging Technician: SAVANA MEASUREMENT RESULTS: Intervals: Rate: 93 SD: 130 QRSD: 90 QT: 348 QTc: 432 [place]: P: 44 SD: 130 QRS: 13 T: 30 INTERPRETIVE STATEMENTS: Normal sinus rhythm Low voltage QRS Borderline ECG Compared to ECG 02/26/2019 09:23:41 Low QRS voltage now present Sinus tachycardia no longer present Electronically Signed On 02-28-19 10:21:08 HR ADMINISTRATIVE ASSISTANT by Tito Domingo
[2019-02-28] MEDS ORDERED: Levofloxacin500mg IV 500 MG/100 ML BAG IV SCH (11:00)
--- NOTE | 2019-02-28 11:37 | EKG ---
Test Date: 2019-02-28 Test Time: 02:45:31 Clinical Sciences Professor: RT Barillas MEASUREMENT RESULTS: Intervals: Rate: 146 TN: QRSD: 92 QT: 302 QTc: 470 [place]: P: TN: QRS: 7 T: 91 INTERPRETIVE STATEMENTS: Atrial fibrillation with rapid ventricular response Low voltage QRS Abnormal QRS-T angle, consider primary T wave abnormality Abnormal ECG Compared to ECG 02/26/2019 10:05:36 T-wave abnormality now present Sinus rhythm no longer present Electronically Signed On 02-28-19 11:36:57 PRODUCTION EDITOR by Tito Domingo
--- NOTE | 2019-02-28 11:37 | EKG ---
Test Date: 2019-02-28 Test Time: 10:52:55 Safe Expert: FÉLIX MEASUREMENT RESULTS: Intervals: Rate: 141 [place]: QRSD: 88 QT: 282 QTc: 431 [place]: P: [place]: QRS: 13 T: 66 INTERPRETIVE STATEMENTS: Atrial fibrillation with rapid ventricular response Abnormal ECG Compared to ECG 02/28/2019 02:45:31 T-wave abnormality no longer present Electronically Signed On 02-28-19 11:36:54 SHOULDER SAWYER by Tito Domingo
[2019-02-28] MEDS ORDERED: METOPROLOL TAR 50 MG TAB PO ONE ×2 (11:51→14:45)
--- NOTE | 2019-02-28 14:30 | ECHO ---
HEIGHT: 5 ft 2 in WEIGHT: 200 lb 0.054 oz DATE OF STUDY: 02/28/[address]: Bry Guzman DO 2-DIMENSIONAL: YES M.MODE: YES DOPPLER: YES COLOR FLOW: YES TDS: NO PORTABLE: NO DEFINITY: NO BUBBLE STUDY: NO DIAGNOSIS: NEW ONSET ATRIAL FIBRILLATION CARDIAC HISTORY: CATHERIZATION: NO SURGERY: NO PROSTHETIC VALVE: NO PACEMAKER: NO MEASUREMENTS (cm) DIASTOLIC (NORMALS) SYSTOLIC (NORMALS) IVSd 1.1 (0.6-1.2) LA Diam 3.9 (1.9-4.0) LVEF 65% LVIDd 4.9 (3.5-5.7) LVIDs 3.2 (2.0-3.5) %FS 36% LVPWd 1.2 (0.6-1.2) Ao Diam 3.0 (2.0-3.7) 2 DIMENSIONAL ASSESSMENT: RIGHT ATRIUM: NORMAL LEFT ATRIUM: NORMAL RIGHT VENTRICLE: NORMAL LEFT VENTRICLE: NORMAL TRICUSPID VALVE: NORMAL MITRAL VALVE: NORMAL PULMONIC VALVE: NORMAL AORTIC VALVE: NORMAL PERICARDIAL EFFUSION: NONE AORTIC ROOT: NORMAL LEFT VENTRICULAR WALL MOTION: NORMAL DOPPLER/COLOR FLOW: MILD MITRAL AND TRICUSPID REGURGITATION. NORMAL RIGHT VENTRICULAR SYSTOLIC PRESSURE. COMMENTS: NORMAL 2D ECHOCARDIOGRAM. MILD MITRAL AND TRICUSPID REGURGITATION. ATRIAL FIBRILLATION WITH RAPID VENTRICULAR RESPONSE. HEART RATE 120-140 BEATS PER MINUTE. TECHNOLOGIST: Marbin WICK
--- NOTE | 2019-02-28 15:08 | CON ---
History Of Present Illness: Ms. Bermudez is 58. She came to the hospital with shortness of breath an d generalized feeling of not feeling well. At one point, she had enough weakness. She could not kan lly stand up. She was found to be hypotensive and has been in the hospital for several days and then last night, had an episode of atrial fibrillation. I believe she is in sinus rhythm now. She is no t hooked up telemetry presently. She does not recall having atrial fibrillation in the past. She wa s treated for hypertension at one point, but that seemed to go away. She has depression and anxiety. Medications: She takes estradiol, pregabalin, omeprazole, tizanidine, oxycodone, acetaminophen, prog esterone, and Wellbutrin. Social History: She uses no tobacco, alcohol, or illegal drugs. Physical Examination: Vital Signs: 4 feet 2 inches, 200 pounds. General: Alert, oriented, pleasant, cooperative, obese, not in distress. Lungs: Clear. Cardiac: Regular rate and rhythm. Abdomen: Soft. Extremities: Normal. No cyanosis, clubbing, or edema. Assessment And Plan: I believe the patient had transient atrial fibrillation. We will get a repeat EKG. We should do an echocardiogram and I will recommend that she tries to get on an antiarrhythmic drug. If her echocardiogram shows ejection fraction is normal, we will try flecainide 50 b.i.d. and consider long-term anticoagulation. She has a CHADS-VASc risk score of 0, so we can treat her with aspirin and flecaini de as the only medications. PABLO Voice ID: [id number] Report ID: [id number]
[2019-02-28] MEDS ORDERED: FLECAINIDE 100 MG TAB PO SCH (21:00)
[2019-03-01] MEDS: PIPER/TAZO/NS 2.25gm 2.25 GM/50 ML BAG IVPB SCH ×3 (00:42→17:00)
[2019-03-01] MEDS: METOPROLOL TARTRATE 5 MG/5 ML INJ IV PRN (02:15)
--- NOTE | 2019-03-01 03:23 | CON ---
Date of Consultation: 02/28/2019 Chief Complaint: Acute kidney injury. History Of Present Illness: Patient denies previous history of kidney problems. She presented to the hospital because of chest pain. She was found to have elevated BUN and creatinine, BUN was 24, creatinine 1.18. On arrival to the hospital, although creatinine was up to 1.79 and BUN was 33. Patient was found to have hypernatremia, today sodium was 149, potassium 4.0, chloride 122, CO2 of 20, BUN 17, creatinine 1.13. Patient developed acute kidney injury on chronic kidney disease with prerenal azotemia. Renal function has improved somewhat over the last 48 hours. Patient is 58-year-old. She came to the hospital because of shortness of breath, generalized weakness, fatigue, malaise. She denies syncope, but she was found to have hypotensive episode and has atrial fibrillation. She was complaining of palpitation and generalized weakness as well as slurred speech and pressure-like chest pain. She has history of depression and anxiety. Review of Systems: Constitutional: Denies fever or chills. Eyes: Denies vision changes. Ears, Nose, Mouth and Throat: Denies sore throat, earache. Respiratory: Has shortness of breath, chest discomfort, and palpitation. GI: Denies nausea, vomiting. : Denies dysuria, hematuria. Musculoskeletal: Denies muscle aches or joint swelling. All other systems reviewed and all are negative. Past Medical History: GERD. 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 Past Surgical History: Right nephrectomy. Family History: Diabetes mellitus in both parents. Social History: Denies tobacco, alcohol, illicit drugs. Physical Examination: General: Not in acute distress. Eyes: Anicteric sclerae. EOMI. Ears, Nose, Mouth, and Throat: Oral mucosa moist. No pallor. Neck: Supple. No bruits. Lungs: Diminished breath sounds. Heart: S1, S2. No pericardial friction rub. Abdomen: Soft, benign, nontender. No rebound, no guarding. Extremities: No edema, no clubbing, no cyanosis. Skin; warm and dry, no oozing Neurologic: no tremor, CN intact Laboratory Data: Showed right upper lobe pneumonia. CT scan of the abdomen and pelvis as well as chest x-ray showed moderate size right upper lobe pneumonia with small right lower lobe pneumonia. CT scan was done without IV contrast. WBC 8.4. BNP 239, lipase 108, creatinine 1.7, potassium 3.9. Impression And Plan: 1. Multilobar pneumonia, septic shock with hypotension. Patient received IV fluids for blood pressure support and to prevent renal hypoperfusion. Renal function has improved and prerenal azotemia responded to adequate hydration. Patient was given bolus of 2 L on arrival to the hospital. Patient is on broad- spectrum antibiotics including vancomycin and Zosyn for coverage of community- acquired pneumonia. Patient will need vancomycin trough level. Plan is to monitor renal function closely when patient is on vancomycin. 2. Acute kidney injury, likely due to prerenal azotemia, acute tubular necrosis. Patient will have renal ultrasound to check any possible evidence of obstructive uropathy. At this point, renal function is improving. Avoid nephrotoxic medication. Patient cannot take nonsteroidal antiinflammatory medication. BUSHRA/KALEB Voice ID: [id number] Report ID: [id number] VITA
[2019-03-01] MEDS: ENOXAPARIN 100 MG/ML SYR SQ SCH ×2 (04:56→17:06)
[2019-03-01] MEDS ORDERED: METOPROLOL TARTRATE 5 MG/5 ML INJ IV STA (05:18)
[2019-03-01 05:23] VITALS: O2SAT 97
[2019-03-01 05:46] LABS: Magnesium 1.7 mg/dL (1.8-2.4); Potassium 3.9 mmol/L (3.5-5.1)
[2019-03-01 05:47] LABS: Absolute Lymphocytes (CBC) 2.9 K/uL (0.7-4.9); Basophils % 0.5 % (0-1.3); Hematocrit 30.7 % (36.0-45.0); MPV 9.9 fL (7.6-11.3); RBC Red Blood Cell Count 3.26 M/uL (3.86-4.86)
[2019-03-01] MEDS: METOPROLOL XL 50 MG TAB PO SCH ×2 (06:21→17:04)
[2019-03-01] MEDS ORDERED: D5W 1,000 ML IV SCH (08:00)
[2019-03-01] MEDS ORDERED: MAGNESIUM SULFATE 1 gm IVPB 1 GM/100 ML BAG IV ONE (08:00)
[2019-03-01] MEDS ORDERED: FLECAINIDE 100 MG TAB PO SCH (09:00)
[2019-03-01] MEDS: FAMOTIDINE 20 MG TAB PO SCH (09:40)
[2019-03-01] MEDS: GUAIFENESIN 600 MG SA TAB PO SCH (09:40)
[2019-03-01] MEDS: PANTOPRAZOLE 40MG TABLET PO SCH ×2 (09:41→17:05)
[2019-03-01] MEDS ORDERED: ALBUTEROL 2.5 MG/3 ML NEB SOL NEB ONE (09:45)
[2019-03-01] MEDS ORDERED: IPRATROPIUM BROM 0.5MG/2.5ML NEB ONE (09:46)
--- NOTE | 2019-03-01 09:50 | P.PN ---
Subjective Date of Service: 03/01/19 Primary Care Provider: unknown Chief Complaint: feel better Subjective: No new changes, No C/O voiced (- c/o of wheezing and SOB today) Review of Systems Unremarkable Physical Examination - Vital Signs Temperature: 98.0 F Blood Pressure: 140/100 Pulse: 100 Respirations: 20 Pulse Ox (%): 95 - Physical Exam General: Alert, Oriented x3 HEENT: Atraumatic, Normocephalic, PERRLA Neck: Supple, 2+ carotid pulse no bruit Respiratory: Normal air movement, Diminished, Expiratory wheezes Cardiovascular: Normal pulses, Regular rate/rhythm, Normal S1 S2 Gastrointestinal: Normal bowel sounds, Soft and benign Musculoskeletal: No clubbing, No swelling Integumentary: No rashes, No breakdown Neurological: Normal speech, Normal strength at 5/5 x4 extr, Normal tone - Studies Laboratory Last Values WBC 10.5 K/uL (4.3-10.9) D 03/01/19 05:16 RBC 3.26 M/uL (3.86-4.86) L 03/01/19 05:16 Hgb 10.4 g/dL (12.0-15.0) L 03/01/19 05:16 Hct 30.7 % (36.0-45.0) L 03/01/19 05:16 MCV 94.2 fL (80-100) 03/01/19 05:16 MCH 32.0 pg (27.0-35.0) 03/01/19 05:16 MCHC 33.9 g/dL (32.0-36.0) 03/01/19 05:16 RDW 13.7 % (12.1-15.2) 03/01/19 05:16 Plt Count 174 K/uL (152-406) 03/01/19 05:16 MPV 9.9 fL (7.6-11.3) 03/01/19 05:16 Neutrophils % 64.8 % (41.7-73.7) 03/01/19 05:16 Lymphocytes % 28.0 % (15.3-44.8) 03/01/19 05:16 Monocytes % 5.4 % (3.3-12.3) 03/01/19 05:16 Eosinophils % 1.3 % (0-4.4) 03/01/19 05:16 Basophils % 0.5 % (0-1.3) 03/01/19 05:16 Absolute Neutrophils 6.8 K/uL (1.8-8.0) 03/01/19 05:16 Absolute Lymphocytes 2.9 K/uL (0.7-4.9) 03/01/19 05:16 Absolute Monocytes 0.6 K/uL (0.1-1.3) 03/01/19 05:16 Absolute Eosinophils 0.1 K/uL (0-0.5) 03/01/19 05:16 Absolute Basophils 0.0 K/uL (0-0.5) 03/01/19 05:16 PT 12.2 SECONDS (9.5-12.5) 02/26/19 10:15 INR 1.04 02/26/19 10:15 Sodium 147 mmol/L (136-145) H 03/01/19 05:16 Potassium 3.9 mmol/L (3.5-5.1) 03/01/19 05:16 Chloride 119 mmol/L (98-107) H 03/01/19 05:16 Carbon Dioxide 22 mmol/L (21-32) 03/01/19 05:16 BUN 12 mg/dL (7-18) 03/01/19 05:16 Creatinine 1.16 mg/dL (0.55-1.3) 03/01/19 05:16 Estimated GFR 48 mL/min (=/>90) L 03/01/19 05:16 Glucose 101 mg/dL (74-106) 03/01/19 05:16 Hemoglobin A1c 4.8 % (4.2-6.3) 02/26/19 16:52 Lactic Acid 1.0 mmol/L (0.4-2.0) 03/01/19 01:45 Calcium 8.5 mg/dL (8.5-10.1) 03/01/19 05:16 Magnesium 1.7 mg/dL (1.8-2.4) L 03/01/19 05:16 Iron 40.0 ug/dL (50-170) L 02/28/19 05:12 TIBC 188 ug/dL (250-460) L 02/28/19 05:12 Transferrin 134 mg/dL (200-360) L 02/28/19 05:12 Transferrin % Sat 21.3 % (20.0-50.0) 02/28/19 05:12 Ferritin 127.4 ng/mL (8-388) 02/28/19 05:12 Total Bilirubin 0.3 mg/dL (0.2-1.0) 02/28/19 05:12 Direct Bilirubin 0.2 mg/dL (0-0.2) 02/26/19 10:15 AST 11 U/L (15-37) L 02/28/19 05:12 ALT 14 U/L (12-78) 02/28/19 05:12 Alkaline Phosphatase 75 U/L (45-117) 02/28/19 05:12 Rapid Troponin I < 0.02 ng/mL (0.0-0.045) 02/26/19 10:15 Troponin I < 0.02 ng/mL (0.0-0.045) 02/28/19 05:12 NT-Pro-B Natriuret Pep 239 pg/mL (<125) H 02/26/19 10:15 Serum Total Protein 5.3 g/dL (6.4-8.2) L 02/28/19 05:12 Albumin 2.5 g/dL (3.4-5.0) L 02/28/19 05:12 Globulin 2.8 g/dL (2.3-3.5) 02/28/19 05:12 Albumin/Globulin Ratio 0.9 (1.1-1.8) L 02/28/19 05:12 Lipase 108 U/L (73-393) 02/26/19 10:15 Vitamin B12 670 pg/mL (193-986) 02/28/19 05:12 TSH 3.040 uIU/mL (0.360-3.740) 02/28/19 05:12 Free T4 0.94 ng/dL (0.76-1.46) 02/28/19 05:12 Urine pH 5.0 (5.0-7.0) 02/26/19 13:28 Ur Specific [place] 1.020 (1.005-1.030) 02/26/19 13:28 Urine Ketones Negative (NEG) 02/26/19 13:28 Urine Blood Trace (NEG) H 02/26/19 13:28 Urine Nitrite Negative (NEG) 02/26/19 13:28 Ur Leukocyte Esterase Negative (NEG) 02/26/19 13:28 Ur Random Sodium 115 mmol/L (27-287) 02/26/19 21:58 Urine Creatinine 138.0 mg/dL (20-320) 02/26/19 13:50 Urine Glucose Negative (NEG) 02/26/19 13:28 Urine Total Protein Negative (NEG) 02/26/19 13:28 Vancomycin Trough 5.4 ug/mL (5.0-20.0) 02/28/19 05:12 Medications List Reviewed: Yes Assessment & Plan - Problems (Diagnosis) (1) ARF (acute renal failure) with tubular necrosis Current Visit: Yes Status: Acute (2) Hyperglycemia Current Visit: Yes Status: Acute (3) Right middle lobe pneumonia Current Visit: Yes Status: Acute (4) Sepsis associated hypotension Current Visit: Yes Status: Acute (5) Single kidney Current Visit: Yes Status: Acute Physician Review: Patient Assessed, Agree with Above Assessment and Plan Physician Review Additional Text: # Right multifocal PNA - improving , c/w abx - will add duonebs to wheezing tx today - no urgent need for steroids # Atrial fib -new onset and transient , on flecanide/aspirin , can dc lovenox at discharge # ARF on CKD- improving # HTN -controlled
--- NOTE | 2019-03-01 10:27 | P.CNS ---
Date of Consult: 03/01/19 Primary Care Provider: unknown Chief Complaint: Pneumonia and AFib History of Present Illness: Patient is 58 years of age. She comes here frequently lives in [place] route of sudden onset of body aches felt very heavy: Moves them easier to the emergency room, diagnosed with pneumonia and atrial fibrillation no prior history of AFib denies any fever or chills Rich has been admitted elevated patient has a history of reflux no prior history of cardiopulmonary disorders still is short of breath tachycardic Allergies erythromycin base Allergy (Verified 02/26/19 12:28) Hives Home Medications: Omeprazole [Prilosec] 40 mg PO BID 02/26/19 Oxycodone HCl/Acetaminophen [Percocet 5/325 Tab*] 7.5 mg PO Q6HR PRN 02/26/19 Pregabalin 200 mg PO TID 02/26/19 Progesterone, Micronized [Progesterone] 1 cap PO SEECOM 02/26/19 Tizanidine HCl [Zanaflex] 4 mg PO Q8HR 02/26/19 Wellbutrin Unknown Dosage 02/26/19 estradioL [Estradiol] 0.5 mg PO DAILY 02/26/19 - Past Medical/Surgical History Diabetic: No -: back pain -: right kidney removed - Social History Place of Residence: Home Review of Systems 10-point ROS is otherwise unremarkable General: Weakness Respiratory: Shortness of Breath Physical Examination Temp Pulse Resp BP Pulse Ox 98.0 F 100 H 20 140/100 H 95 03/01/19 09:49 03/01/19 09:49 03/01/19 09:49 03/01/19 09:49 03/01/19 09:49 General: Alert, Mild distress HEENT: Atraumatic Neck: Supple Respiratory: Diminished Cardiovascular: No edema, Irregular heart rate/rhythm Gastrointestinal: Normal bowel sounds, Soft and benign - Problems (1) Pneumonia Current Visit: Yes Status: Acute Plan: Patient is 58 years of age in need of a sudden onset of body aches and found to have pneumonia in the right upper lobe patient's white count is declining labs reviewed cultures negative sputum is pending can change to p.o. antibiotics avoid fluoroquinolones and macrolides consider combination of cefuroxime 500 mg twice a day. Doxycycline for atypical coverage Qualifiers: Pneumonia type: due to unspecified organism Laterality: right (2) Atrial fibrillation Current Visit: Yes Status: Acute Plan: Patient has new onset of AFib scheduled for cardioversion tomorrow seen by Cardiology did control on flecainide and Zosyn echocardiogram is normal Qualifiers: Atrial fibrillation type: paroxysmal Qualified Code(s): I48.0 - Paroxysmal atrial fibrillation
--- NOTE | 2019-03-01 12:27 | PN ---
Date of Progress Note: 03/01/2019 She was admitted to Dr. Guzman with pneumonia, weakness, and atrial fibrillation. She is improved. Her blood pressure is normal. She still have atrial fibrillation that is paroxysmal. Today, she is still in atrial fibrillation at the rate of 140. Dr. Domingo started her on aspirin, flecainide 50 b. i.d. yesterday. I will increase her dose of flecainide to 100 b.i.d. I prefer she goes home on an a nticoagulant. Her echo was normal. We will see her in the office in the next 2 to 3 days. If she r emains in atrial fibrillation, we will do a cardioversion sometimes in the next week or 2. I am mikie clark that her atrial fibrillation will resolve after her pneumonia resolves. ANNY/KALEB Voice ID: [id number] Report ID: [id number]
[2019-03-01] MEDS ORDERED: NA CHLORIDE 0.9% 500 ML ONE (13:39)
[2019-03-01] MEDS ORDERED: FLUMAZENIL 0.1 MG/ML (5 mL VIAL) IV ONE (13:39)
[2019-03-01] MEDS ORDERED: ATROPINE SULF 1 MG/10 ML SYR IV ONE (13:39)
[2019-03-01] MEDS ORDERED: MIDAZOLAM HCL 5 MG/5 ML INJ ONE ×2 (13:39→13:40)
--- NOTE | 2019-03-01 16:39 | P.DS ---
Admission Date: 02/26/19 Discharge Date: 03/01/19 Primary Care Provider: unknown Disposition: ROUTINE DISCHARGE Discharge Condition: GOOD Reason for Admission: Pneumonia and AFib Consultations: Pulmonary-Dr. Hector Cardiology-Dr. Walton Procedures: CT Scan: IMPRESSION: Moderate-sized right upper lobe pneumonia with smaller right lower lobe pneumonia. No cavitation or complicating finding. No other significant chest finding. No acute abdominal or pelvic finding. Left kidney is absent. Umbilical and supraumbilical fat only ventral hernias seen. Postsurgical fusion changes at L3-S1 with extensive advanced for age degenerative disc and bone changes T11-L2. CXR: FINDINGS: The lungs are underinflated. Right upper lobe pneumonia changes are still present. Little interval change has occurred. Small or right base pneumonia changes also appear stable. No developing failure or volume overload seen. Heart size is normal and central vasculature is within normal limits. No pleural effusion or pneumothorax seen. Prominent degenerative changes are present. Neurostimulator wires are in place. There is accentuated kyphosis at the thoracolumbar junction. No aortic abnormality. IMPRESSION: Right upper lobe and right lung base pneumonia findings not substantially different from comparison. ECHO: Ejection fraction 65% LEFT VENTRICULAR WALL MOTION: NORMAL DOPPLER/COLOR FLOW: MILD MITRAL AND TRICUSPID REGURGITATION. NORMAL RIGHT VENTRICULAR SYSTOLIC PRESSURE. COMMENTS: NORMAL 2D ECHOCARDIOGRAM. MILD MITRAL AND TRICUSPID REGURGITATION. ATRIAL FIBRILLATION WITH RAPID VENTRICULAR RESPONSE. HEART RATE 120-140 BEATS PER MINUTE. Medical Problem List: New onset atrial fibrillation Right upper and lower lobe pneumonia Acute on chronic renal failure stage 3 with history of solitary kidney Hypertension Hypoglycemia Chronic pain Depression with anxiety Brief History of Present Illness: 58-year-old female presented to the emergency room with shortness of breath. Patient found to have pneumonia with respiratory failure. Patient admitted to ICU. Hospital Course: Patient presented with shortness of breath. Patient had acute respiratory failure secondary to right upper lobe pneumonia. During the course of her stay patient was treated with antibiotic therapy. Patient seen and evaluated by pulmonology. At discharge she did not require any oxygen. Patient will continue with Cefuroxime 500 mg twice daily for 7 days. Tessalon Perles 100 mg 1 pill 3 times a day as needed for cough will be provided. Recommend to follow up with pulmonology in 1-2 weeks to follow up this hospitalization. Recommend to recheck chest x-ray in 2-4 weeks to monitor resolution. During the course of her stay patient had new onset atrial fibrillation likely from the acute respiratory distress. Cardiology was consulted. Echocardiogram shows normal ejection fraction. Patient was given IV metoprolol. Patient was transition to flecainide. Medication was increased. Cardiology had plan for cardioversion but patient was able to convert on her own. At discharge patient will continue with flecainide 100 mg 1 pill twice daily and aspirin 81 mg daily. Recommend follow up with cardiology within 1 week to follow up this hospitalization. Patient with hypertension. At discharge patient will continue with metoprolol XL 50 mg 1 pill twice daily. Further adjustment can be done by Cardiology. Patient with acute on chronic renal failure stage 3 with history of solitary kidney. Nephrology was consulted. Renal function improved. Patient stable this time. Recommend no further use of nonsteroidal anti-inflammatories. Future medications will need to be renally dosed. Recommend to recheck lab-BMP in 1 week to follow up this hospitalization. Recommend follow up with nephrology in 2 4 weeks to monitor progress. Patient with chronic pain. At discharge she may continue with her medications including hydrocodone and Lyrica. Recommend follow up with pain management. Patient with depression and anxiety. At discharge she may continue with medication. Vital Signs/Physical Exam: Temp Pulse Resp BP Pulse Ox 98.2 F 130 H 21 H 114/83 96 03/01/19 12:00 03/01/19 12:00 03/01/19 12:00 03/01/19 12:00 03/01/19 12:00 General: Alert, In no apparent distress, Oriented x3, Cooperative HEENT: Atraumatic Neck: Supple Respiratory: Clear to auscultation bilaterally, Normal air movement Cardiovascular: Normal pulses, Regular rate/rhythm Gastrointestinal: Normal bowel sounds, Soft and benign, Non-distended, No masses , No rebound, No guarding Musculoskeletal: No erythema, No tenderness, No warmth Integumentary: No tenderness/swelling, No erythema, No warmth, No cyanosis Neurological: Normal speech, Normal strength at 5/5 x4 extr, Normal tone, Normal affect Laboratory Data at Discharge: WBC 10.5 K/uL (4.3-10.9) D 03/01/19 05:16 Hgb 10.4 g/dL (12.0-15.0) L 03/01/19 05:16 Hct 30.7 % (36.0-45.0) L 03/01/19 05:16 Plt Count 174 K/uL (152-406) 03/01/19 05:16 PT 12.2 SECONDS (9.5-12.5) 02/26/19 10:15 INR 1.04 02/26/19 10:15 Sodium 147 mmol/L (136-145) H 03/01/19 05:16 Potassium 3.9 mmol/L (3.5-5.1) 03/01/19 05:16 BUN 12 mg/dL (7-18) 03/01/19 05:16 Creatinine 1.16 mg/dL (0.55-1.3) 03/01/19 05:16 Glucose 101 mg/dL (74-106) 03/01/19 05:16 Magnesium 1.7 mg/dL (1.8-2.4) L 03/01/19 05:16 Total Bilirubin 0.3 mg/dL (0.2-1.0) 02/28/19 05:12 AST 11 U/L (15-37) L 02/28/19 05:12 ALT 14 U/L (12-78) 02/28/19 05:12 Alkaline Phosphatase 75 U/L (45-117) 02/28/19 05:12 Troponin I < 0.02 ng/mL (0.0-0.045) 02/28/19 05:12 Lipase 108 U/L (73-393) 02/26/19 10:15 Home Medications: Omeprazole [Prilosec] 40 mg PO BID 02/26/19 Oxycodone HCl/Acetaminophen [Percocet 5/325 Tab*] 7.5 mg PO Q6HR PRN 02/26/19 Pregabalin 200 mg PO TID 02/26/19 Progesterone, Micronized [Progesterone] 1 cap PO SEECOM 02/26/19 Wellbutrin Unknown Dosage 02/26/19 estradioL [Estradiol] 0.5 mg PO DAILY 02/26/19 Benzonatate [Tessalon Perle*] 100 mg PO TID PRN #15 cap 03/01/19 Cefuroxime Axetil [Cefuroxime] 500 mg PO BID #14 tab 03/01/19 Flecainide [Tambocor*] 100 mg PO BID #60 tab 03/01/19 Metoprolol Succinate [Toprol Xl*] 50 mg PO BID 6AM 6PM #60 tab 03/01/19 New Medications: Benzonatate [Tessalon Perle*] 100 mg PO TID PRN #15 cap PRN Reason: Cough Cefuroxime Axetil [Cefuroxime] 500 mg PO BID #14 tab Flecainide [Tambocor*] 100 mg PO BID #60 tab Metoprolol Succinate [Toprol Xl*] 50 mg PO BID 6AM 6PM #60 tab Patient Discharge Instructions: 1. Recommend follow up with PCP in 1 week to follow up this hospitalization. 2. Patient presented with shortness of breath. Patient had acute respiratory failure secondary to right upper lobe pneumonia. During the course of her stay patient was treated with antibiotic therapy. Patient seen and evaluated by pulmonology. At discharge she did not require any oxygen. Patient will continue with Cefuroxime 500 mg twice daily for 7 days. Tessalon Perles 100 mg 1 pill 3 times a day as needed for cough will be provided. Recommend to follow up with pulmonology in 1-2 weeks to follow up this hospitalization. Recommend to recheck chest x-ray in 2-4 weeks to monitor resolution. 3. During the course of her stay patient had new onset atrial fibrillation likely from the acute respiratory distress. Cardiology was consulted. Echocardiogram shows normal ejection fraction. Patient was given IV metoprolol. Patient was transition to flecainide. Medication was increased. Cardiology had plan for cardioversion but patient was able to convert on her own. At discharge patient will continue with flecainide 100 mg 1 pill twice daily and aspirin 81 mg daily. Recommend follow up with cardiology within 1 week to follow up this hospitalization. 4. Patient with hypertension. At discharge patient will continue with metoprolol XL 50 mg 1 pill twice daily. Further adjustment can be done by Cardiology. 5. Patient with acute on chronic renal failure stage 3 with history of solitary kidney. Nephrology was consulted. Renal function improved. Patient stable this time. Recommend no further use of nonsteroidal anti-inflammatories. Future medications will need to be renally dosed. Recommend to recheck lab-BMP in 1 week to follow up this hospitalization. Recommend follow up with nephrology in 2 4 weeks to monitor progress. 6. Patient with chronic pain. At discharge she may continue with her medications including hydrocodone and Lyrica. Recommend follow up with pain management. 7. Patient with depression and anxiety. At discharge she may continue with medication. Diet: AHA Activity: Ad dilip Time spent managing pt's care (in minutes): 55
[2019-03-01 17:07] VITALS: BP 138/88
[2019-03-01 17:13] VITALS: TEMP 98.4
--- NOTE | 2019-03-02 00:57 | PN ---
Date of Progress Note: 03/01/2019 Chief Complaint: Acute kidney injury. History Of Present Illness: Patient has history of solitary kidney. She underwent nephrectomy. She presented to the hospital because of chest pain. She was feeling dizzy and she had slurred speech. She was found to have hypernatremia, sodium level was 149, potassium 4.0, chloride 112, CO2 of 20, B UN 17, creatinine 113. The patient developed acute kidney injury on chronic kidney disease secondary to prerenal azotemia. Patient was started on IV fluids and renal function has stabilized. Review of Systems: Denies fever, chills. Physical Examination: Lungs: Clear to auscultation bilaterally. Heart: S1, S2. Abdomen: Soft. Benign. Extremities: No edema. Laboratory Data: BNP 239, lipase 108, creatinine 1.7, potassium 3.9, WBC 8.4. Impression And Plan: 1.Multifocal multilobar pneumonia, septic shock with hypotension. Patient received IV fluids to pre vent renal hypoperfusion. Continue adequate hydration. Avoid nephrotoxic medication. 2.Acute kidney injury secondary to prerenal azotemia with acute tubular necrosis. Ultrasound was done to rule out obstructive uropathy. Avoid nephrotoxic medicatio n. BUSHRA/MODL Voice ID: [id number] Report ID: [id number]
[2019-03-02] MEDS ORDERED: Magnesium Sulfate 2gm IVPB 2 G/50 ML BAG IV ONE (07:53)
--- NOTE | 2019-03-08 16:41 | EKG ---
Test Date: 2019-03-01 Test Time: 13:47:22 Administrative Processor: FÉLIX MEASUREMENT RESULTS: Intervals: Rate: 79 FL: 128 QRSD: 92 QT: 354 QTc: 405 [place]: P: 43 FL: 128 QRS: 6 T: 31 INTERPRETIVE STATEMENTS: Normal sinus rhythm Normal ECG Compared to ECG 02/28/2019 10:52:55 Atrial fibrillation no longer present Electronically Signed On 03-08-19 16:40:00 GLOBAL ACCOUNT EXECUTIVE by Khai Walton
== END 2019-03-01 18:33 | disposition home or self-care (01) | DRG 871 ==
LOC: ER 09:11 → ERHOLD 12:32 → 2ND 18:37
PROVIDERS: ADMIT Internal Medicine; ATTEND Internal Medicine
DX: A41.9 Sepsis, unspecified organism (principal); J18.9 Pneumonia, unspecified organism; R65.21 Severe sepsis with septic shock; N17.0 Acute kidney failure with tubular necrosis; E11.22 Type 2 diabetes mellitus with diabetic chronic kidney disease; E11.65 Type 2 diabetes mellitus with hyperglycemia; I12.9 Hypertensive chronic kidney disease with stage 1 through stage 4 chronic kidney disease, or unspecified chronic kidney disease; N18.3 Chronic kidney disease, stage 3 (moderate); I48.91 Unspecified atrial fibrillation; K21.9 Gastro-esophageal reflux disease without esophagitis; Z90.5 Acquired absence of kidney
CPT/HCPCS: 36415; 71045; 71046; 71250; 74176; 76700; 80048; 80053; 80076; 80202; 81003; 82570; 82607; 82728; 83036; 83540; 83605; 83690; 83735; 83880; 84300; 84439; 84443; 84466; 84484; 85025; 85610; 87040; 93005; 93306; 94640; 99285; C9113; J0696; J1644; J1650; J2250; J2270; J2405; J3475; J7030; J7040

== ENCOUNTER 2021-07-27 17:07 | Emergency (ER) | payer OTHER ==
[2021-07-27] MEDS ORDERED: HYDROCODONE/CHLORPHEN 5 ML/OSYR ONE (17:46)
--- NOTE | 2021-07-27 20:27 | RAD REPORT ---
EXAM DESCRIPTION: Misha Ribeiro And Igor (2 Views)07/27/2021 8:09 pm CLINICAL HISTORY: Cough COMPARISON: 2019 FINDINGS: The lungs appear clear of acute infiltrate. The heart is normal size. A neurostimulator in place. bass singer overlies the left chest IMPRESSION: No acute abnormalities displayed
--- NOTE | 2021-07-27 20:35 | ER ---
Nurse's Notes [facility] Name: Susan Bermudez Age: 61 yrs Sex: Female : 1960 Arrival Date: 07/27/2021 Time: 17:10 Bed 9 Private MD: Diagnosis: Acute upper respiratory infection, unspecified Presentation: 07/27 17:29 Chief complaint: Patient states: Cough and SOB X 3 days. Coronavirus screen: Client ld1 presents with at least one sign or symptom that may indicate coronavirus-19. Standard/surgical mask placed on the client. Ebola Screen: No symptoms or risks identified at this time. Initial Sepsis Screen: Does the patient meet any 2 criteria? No. Patient's initial sepsis screen is negative. Does the patient have a suspected source of infection? No. Patient's initial sepsis screen is negative. Risk Assessment: Do you want to hurt yourself or someone else? Patient reports no desire to harm self or others. Onset of symptoms was July 27, 2021. 17:29 Method Of Arrival: Ambulatory ld1 17:29 Acuity: LIAM 3 ld1 Triage Assessment: 17:31 General: Appears in no apparent distress. comfortable, Behavior is calm, cooperative, ld1 appropriate for age. Pain: Denies pain. EENT: Throat is pink Reports sore throat. Neuro: Level of Consciousness is awake, alert, obeys commands, Oriented to person, place, time, situation. Cardiovascular: Capillary refill < 3 seconds Patient's skin is warm and dry. Respiratory: Reports shortness of breath cough that is Airway is patent Respiratory effort is even, unlabored, Onset: The symptoms/episode began/occurred gradually, the patient has moderate shortness of breath. GI: Abdomen is round non-distended. Historical: - Allergies: 17:31 Erythromycin; ld1 - PMHx: 17:31 Back pain; ld1 - PSHx: 17:31 None; ld1 - Immunization history:: Adult Immunizations up to date, Client reports receiving the 2nd dose of the Covid vaccine. - Social history:: Smoking status: Patient denies any tobacco usage or history of. Patient/guardian denies using alcohol. Screenin:16 Abuse screen: Denies threats or abuse. Denies injuries from another. Nutritional ld1 screening: No deficits noted. Tuberculosis screening: No symptoms or risk factors identified. Fall Risk None identified. Assessment: 19:15 Reassessment: See triage assessment. Cardiovascular: Capillary refill < 3 seconds ld1 Patient's skin is warm and dry. Rhythm is regular. Respiratory: Airway is patent Respiratory effort is even, unlabored, Breath sounds are coarse bilaterally. 20:45 Reassessment: Patient is alert, oriented x 3, equal unlabored respirations, skin fu warm/dry/pink. Patient states feeling better. Vital Signs: 17:29 BP 138 / 76; Pulse 81; Resp 18; Temp 98.1(O); Pulse Ox 97% on R/A; Weight 90.72 kg; ld1 Height 5 ft. 2 in. (157.48 cm); Pain 3/10; 19:15 BP 133 / 79; Pulse 79; Resp 18; Pulse Ox 97% on R/A; ld1 19:50 BP 137 / 84; Pulse 81; Resp 18; Pulse Ox 95% on R/A; fu 17:29 Body Mass Index 36.58 (90.72 kg, 157.48 cm) ld1 ED Course: 17:10 Patient arrived in ED. ja2 17:17 Butch sTang NP is PHCP. pm1 17:17 Aj Hernandez MD is Attending Physician. pm1 17:31 Triage completed. ld1 17:31 Arm band placed on right wrist. ld1 17:34 COVID-19 SARS RT PCR (Document "Date of Onset" if Symptomatic) Sent. ld1 17:34 Flu Sent. ld1 17:34 Strep Sent. ld1 17:41 Strep Sent. ld1 17:41 Flu Sent. ld1 17:41 COVID-19 SARS RT PCR (Document "Date of Onset" if Symptomatic) Sent. ld1 19:15 Jazzmine Ventura, RN is Primary Nurse. ld1 19:16 Patient has correct armband on for positive identification. Placed in gown. Bed in low ld1 position. Call light in reach. Side rails up X2. teletypesetter monitor on. Pulse ox on. NIBP on. Door closed. Noise minimized. Warm blanket given. 19:16 No provider procedures requiring assistance completed. ld1 20:10 Chest Pa And Lat (2 Views) XRAY In Process Unspecified. EDMS 20:51 Patient did not have IV access during this emergency room visit. fu Administered Medications: 17:41 Drug: Tussionex Pennkinetic ER (chlorpheniramine-hydrocodone) Suspension 5 ml Route: PO;ld1 20:44 Follow up: Response: Pain is decreased fu 20:44 Drug: Decadron (dexamethasone) 10 mg Route: IM; Site: right deltoid; fu Medication: 19:16 VIS not applicable for this client. ld1 Outcome: 20:34 Discharge ordered by MD. pm1 20:45 Discharged to home ambulatory, with family. fu 20:45 Condition: stable 20:45 Discharge instructions given to patient, Instructed on discharge instructions, follow up and referral plans. Demonstrated understanding of instructions, follow-up care, Prescriptions given X 3. 21:03 Patient left the ED. fu Signatures: Dispatcher [employer] EDMS Butch Tsang NP COUNTY JUDGE pm1 Mathieu Talley, RN RN Jazzmine Perez RN RN ld1 Irene Little
--- NOTE | 2021-07-27 20:35 | EDPHYS ---
Physician Documentation [facility] Name: Susan Bermudez Age: 61 yrs Sex: Female : 1960 Arrival Date: 07/27/2021 Time: 17:10 Bed 9 Private MD: ED Physician Aj Hernandez HPI: 07/27 17:33 This 61 yrs old Female presents to ER via Ambulatory with complaints of Cough, Sore pm1 throat. 17:33 The patient or guardian reports cough, with productive sputum, that is green, that is pm1 yellow, sore throat. Onset: The symptoms/episode began/occurred 3 day(s) ago. Severity of symptoms: in the emergency department the symptoms are unchanged. Modifying factors: The symptoms are alleviated by nothing. Associated signs and symptoms: Pertinent positives: sore throat, Pertinent negatives: chest pain, diarrhea, fever, vomiting. The patient has not experienced similar symptoms in the past. The patient has not recently seen a physician. Historical: - Allergies: 17:31 Erythromycin; ld1 - PMHx: 17:31 Back pain; ld1 - PSHx: 17:31 None; ld1 - Immunization history:: Adult Immunizations up to date, Client reports receiving the 2nd dose of the Covid vaccine. - Social history:: Smoking status: Patient denies any tobacco usage or history of. Patient/guardian denies using alcohol. ROS: 17:33 Cardiovascular: Negative for chest pain, palpitations, and edema. pm1 17:33 Abdomen/GI: Negative for abdominal pain, nausea, vomiting, diarrhea, and constipation, Back: Negative for injury and pain, MS/Extremity: Negative for injury and deformity, Skin: Negative for injury, rash, and discoloration, Neuro: Negative for headache, weakness, numbness, tingling, and seizure. 17:33 Constitutional: Positive for chills, Negative for poor PO intake. 17:33 ENT: Positive for sore throat, Negative for ear pain. 17:33 Respiratory: Positive for cough, Negative for shortness of breath. 17:33 All other systems are negative. Exam: 17:33 Constitutional: This is a well developed, well nourished patient who is awake, alert, pm1 and in no acute distress. Head/Face: Normocephalic, atraumatic. 17:33 Back: No spinal tenderness. No costovertebral tenderness. Full range of motion. Skin: Warm, dry with normal turgor. Normal color with no rashes, no lesions, and no evidence of cellulitis. 17:33 MS/ Extremity: Pulses equal, no cyanosis. Neurovascular intact. Full, normal range of motion. 17:33 ENT: External ear(s): no acute changes, Ear canal(s): no acute changes, TM's: no acute changes, Posterior pharynx: Airway: no evidence of obstruction, Tonsils: bilaterally enlarged, with erythema, no exudate, no ulcerations, erythema, that is moderate, peritonsillar mass, is not appreciated. 17:33 Cardiovascular: Exam negative for acute changes, Rate: normal, Rhythm: regular, Pulses: no pulse deficits are appreciated, Heart sounds: normal. 17:33 Respiratory: Exam negative for acute changes, respiratory distress, shortness of breath. 17:33 Abdomen/GI: Inspection: abdomen appears normal, Palpation: abdomen is soft and non-tender, in all quadrants. 17:33 Neuro: Exam negative for acute changes, Orientation: is normal, Mentation: is normal, Motor: is normal, moves all fours. Vital Signs: 17:29 BP 138 / 76; Pulse 81; Resp 18; Temp 98.1(O); Pulse Ox 97% on R/A; Weight 90.72 kg; ld1 Height 5 ft. 2 in. (157.48 cm); Pain 3/10; 19:15 BP 133 / 79; Pulse 79; Resp 18; Pulse Ox 97% on R/A; ld1 19:50 BP 137 / 84; Pulse 81; Resp 18; Pulse Ox 95% on R/A; fu 17:29 Body Mass Index 36.58 (90.72 kg, 157.48 cm) ld1 MDM: 17:33 Patient medically screened. pm1 20:33 Data reviewed: vital signs. Data interpreted: Pulse oximetry: on room air is 95 %. pm1 Interpretation: normal. Counseling: I had a detailed discussion with the patient and/or guardian regarding: the historical points, exam findings, and any diagnostic results supporting the discharge/admit diagnosis, lab results, radiology results, the need for outpatient follow up, to return to the emergency department if symptoms worsen or persist or if there are any questions or concerns that arise at home. 07/27 17:33 Order name: COVID-19 SARS RT PCR (Document "Date of Onset" if Symptomatic); Complete pm1 Time: 18:42 07/27 17:33 Order name: Flu; Complete Time: 18:42 pm1 07/27 17:33 Order name: Strep; Complete Time: 18:00 pm1 07/27 17:33 Order name: Chest Pa And Lat (2 Views) XRAY; Complete Time: 20:29 pm1 07/27 17:58 Order name: Throat Culture EDMS Administered Medications: 17:41 Drug: Tussionex Pennkinetic ER (chlorpheniramine-hydrocodone) Suspension 5 ml Route: PO;ld1 20:44 Follow up: Response: Pain is decreased fu 20:44 Drug: Decadron (dexamethasone) 10 mg Route: IM; Site: right deltoid; fu Disposition: 07/28 07:43 Co-signature as Attending Physician, Aj Hernandez MD I agree with the assessment and kdr plan of care. Disposition Summary: 07/27/21 20:34 Discharge Ordered Location: Home pm1 Problem: new pm1 Symptoms: have improved pm1 Condition: Stable pm1 Diagnosis - Acute upper respiratory infection, unspecified pm1 Followup: pm1 - With: Emergency Department - When: As needed - Reason: Worsening of condition Followup: pm1 - With: Private Physician - When: 2 - 3 days - Reason: Recheck today's complaints, Continuance of care, Re-evaluation by your physician Discharge Instructions: - Discharge Summary Sheet pm1 - Antibiotic Resistance pm1 - Upper Respiratory Infection, Adult pm1 Forms: - Medication Reconciliation Form pm1 - Thank You Letter pm1 - Antibiotic Education pm1 - Prescription Opioid Use pm1 Prescriptions: - Ventolin HFA 90 mcg/actuation Inhalation HFA aerosol inhaler - inhale 1 puff by INHALATION route every 4-6 hours As needed; 1 Inhaler; pm1 Refills: 0, Product Selection Permitted - Medrol (Rubin) 4 mg Oral Tablets, Dose Pack - take 1 tablet by ORAL route as directed - follow package instructions; 1 pm1 packet; Refills: 0, Product Selection Permitted - Guaifenesin AC 10-100 mg/5 mL Oral Liquid - take 10 milliliters by ORAL route every 4 hours As needed; 240 milliliter; pm1 Refills: 0, Product Selection Permitted Signatures: Dispatcher [employer] EDAj Flores MD MD kdr Butch Tsang, OFFICE SPECIALIST OFFICE SPECIALIST pm1 Mathieu Talley RN RN fu Dibbern, Lauren, RN RN ld1
[2021-07-27] MEDS ORDERED: dexAMETHasone 10 MG/ML VIAL ONE (20:44)
[2021-07-27 21:11] VITALS: TEMP 98.1
[2021-07-27 21:14] VITALS: BP 137/84; O2SAT 95
== END 2021-07-27 21:03 | disposition home or self-care (01) ==
LOC: ER 17:07
DX: J06.9 Acute upper respiratory infection, unspecified (principal); Z20.822 Contact with and (suspected) exposure to COVID-19; Z88.3 Allergy status to other anti-infective agents
CPT/HCPCS: 87070; 87081; 87804 ×2; 71046; 96372; 99284; U0003; J1100